=== PATIENT | female | born 1960 | race Caucasian/White ===

== ENCOUNTER 2021-01-07 11:51 | Outpatient (CLI) | payer MEDICAID ==
[~2021-01-07 11:51] MED LIST: BUSPAR PO; FURO40TA4 PO; GABA300C PO; NORT25CA5 PO; POTA8CAP20 PO; SUMA100T PO; VITAMIN D3 PO
[2021-01-07 14:28] LABS: PARTIAL THROMBOPLASTIN TIME 24 SECONDS (22-32)
== END 2021-01-07 23:59 | disposition home or self-care (01) ==
LOC: LAB 11:51
DX: Z13.220 Encounter for screening for lipoid disorders (principal); B19.20 Unspecified viral hepatitis C without hepatic coma; G47.00 Insomnia, unspecified; G47.30 Sleep apnea, unspecified; G25.0 Essential tremor; G62.0 Drug-induced polyneuropathy; I63.40 Cerebral infarction due to embolism of unspecified cerebral artery; Z12.11 Encounter for screening for malignant neoplasm of colon; Z59.9 Problem related to housing and economic circumstances, unspecified
CPT/HCPCS: 36415; 85610; 85730

== ENCOUNTER 2021-01-12 08:51 | Outpatient (CLI) | payer MEDICAID ==
[2021-01-12 11:50] LABS: BASOPHILS % (AUTO) 1.3 % (0-1); EOSINOPHILS # (AUTO) 0.1 X10'3 (0-0.9); EOSINOPHILS % (AUTO) 4.2 % (0-6); HEMATOCRIT 37.8 % (35.0-45.0); HEMOGLOBIN 12.5 g/dl (12.0-16.0); LYMPHOCYTES # (AUTO) 0.5 X10'3 (1.1-4.8); LYMPHOCYTES % (AUTO) 23.6 % (21-51); MEAN CORPUSCULAR HEMOGLOBIN 30.2 PG (27.0-31.0); MEAN CORPUSCULAR VOLUME 91.6 FL (78-98); MEAN PLATELET VOLUME 10.4 FL (7.4-10.4); MONOCYTES # (AUTO) 0.3 X10'3 (0-0.9); MONOCYTES % (AUTO) 13.1 % (2-12); NEUTROPHILS # (AUTO) 1.3 X10'3 (1.8-7.7); NEUTROPHILS % (AUTO) 57.8 % (42-75); PLATELET COUNT 57 X10'3 (140-440); RED BLOOD COUNT 4.13 X10'6 (4.20-5.60); RED CELL DISTRIBUTION WIDTH 17.8 % (11.5-14.5); WHITE BLOOD COUNT 2.2 X10'3 (4.5-11.0)
[2021-01-12 12:11] LABS: ALANINE AMINOTRANSFERASE 89 U/L (12-78); ALBUMIN 2.9 G/DL (3.4-5.0); ALBUMIN/GLOBULIN RATIO 0.9 (1.1-1.5); ALKALINE PHOSPHATASE 163 IU/L (46-116); ANION GAP 8 (8-16); ASPARTATE AMINO TRANSFERASE 177 U/L (10-37); BILIRUBIN,TOTAL 2.1 MG/DL (0.1-1.0); BLOOD UREA NITROGEN 11 MG/DL (7-18); BUN/CREATININE RATIO 18.3 (6.6-38.0); CHLORIDE 108 MMOL/L (99-107); CHOL/HDL RATIO 2.9 (0.00-4.99); CHOLESTEROL 120 MG/DL (0-200); GLUCOSE 102 MG/DL (70-104); HDL CHOLESTEROL 42 MG/DL (35-60); LDL CHOLESTEROL 61 MG/DL (50-100); POTASSIUM 3.7 MMOL/L (3.5-5.1); SODIUM 144 MMOL/L (135-145); TOTAL CARBON DIOXIDE 27.8 MMOL/L (24-32); TOTAL PROTEIN 6.2 G/DL (6.4-8.2); TRIGLYCERIDES 61 MG/DL (20-135); eGFR > 90 ML/MIN
[2021-01-12 15:13] LABS: HIV ANTIBODY 1&2 RAPID NON-REACTIVE (Neg)
[2021-01-13 12:53] LABS: HBSAG SCREEN Negative (Negative); HEP A AB, IGM Negative (Negative); HEPATITIS C ANTIBODY >11.0 s/co ratio (0.0-0.9)
== END 2021-01-12 23:59 | disposition home or self-care (01) ==
LOC: LAB 08:51
DX: Z12.11 Encounter for screening for malignant neoplasm of colon (principal); Z13.220 Encounter for screening for lipoid disorders; B19.20 Unspecified viral hepatitis C without hepatic coma; G47.11 Idiopathic hypersomnia with long sleep time; G47.30 Sleep apnea, unspecified; G25.0 Essential tremor; G62.0 Drug-induced polyneuropathy; I63.40 Cerebral infarction due to embolism of unspecified cerebral artery; Z59.9 Problem related to housing and economic circumstances, unspecified; Z87.898 Personal history of other specified conditions
CPT/HCPCS: 36415; 80053; 80061; 80074; 84443; 85025; 86703; 87522

== ENCOUNTER 2021-06-15 14:48 | Inpatient (IN) | payer MEDICAID ==
[~2021-06-15] VITALS: Ht 165.1 cm; Wt 109.1 kg
[2021-06-15 15:31] LABS: BASOPHILS # (AUTO) 0.1 X10'3 (0-0.2); EOSINOPHILS # (AUTO) 0.1 X10'3 (0-0.9); EOSINOPHILS % (AUTO) 2.1 % (0-6); HEMATOCRIT 36.3 % (35.0-45.0); HEMOGLOBIN 12.5 g/dl (12.0-16.0); LYMPHOCYTES # (AUTO) 0.3 X10'3 (1.1-4.8); LYMPHOCYTES % (AUTO) 6.3 % (21-51); MEAN CORPUSCULAR HEMOGLOBIN 34.1 PG (27.0-31.0); MEAN CORPUSCULAR HGB CONC 34.5 g/dL (33.0-36.5); MEAN PLATELET VOLUME 9.9 FL (7.4-10.4); MONOCYTES # (AUTO) 0.6 X10'3 (0-0.9); MONOCYTES % (AUTO) 11.7 % (2-12); NEUTROPHILS # (AUTO) 4.1 X10'3 (1.8-7.7); NEUTROPHILS % (AUTO) 77.9 % (42-75); PLATELET COUNT 76 X10'3 (140-440); RED BLOOD COUNT 3.66 X10'6 (4.20-5.60); RED CELL DISTRIBUTION WIDTH 16.1 % (11.5-14.5); WHITE BLOOD COUNT 5.3 X10'3 (4.5-11.0)
[2021-06-15 15:46] LABS: ALANINE AMINOTRANSFERASE 91 U/L (12-78); ALBUMIN 1.7 G/DL (3.4-5.0); ALKALINE PHOSPHATASE 202 IU/L (46-116); ASPARTATE AMINO TRANSFERASE 244 U/L (10-37); BILIRUBIN,TOTAL 8.3 MG/DL (0.1-1.0); BLOOD UREA NITROGEN 14 MG/DL (7-18); BUN/CREATININE RATIO 21.9 (6.6-38.0); CREATININE 0.64 MG/DL (0.40-0.90); GLUCOSE 118 MG/DL (70-104); TOTAL CARBON DIOXIDE 28.3 MMOL/L (24-32); eGFR > 90 ML/MIN
[2021-06-15 15:50] LABS: D-DIMER 8.78 MG/L FEU (0-0.50)
[2021-06-15 16:07] LABS: ALBUMIN/GLOBULIN RATIO 0.4 (1.1-1.5); TOTAL PROTEIN 6.2 G/DL (6.4-8.2)
[2021-06-15 16:08] LABS: ANION GAP 8 (8-16); CHLORIDE 95 MMOL/L (99-107); POTASSIUM 3.3 MMOL/L (3.5-5.1); SODIUM 131 MMOL/L (135-145)
--- NOTE | 2021-06-15 17:38 | NUR ---
unable to obtain any iv on the patient asked flaco if he can try ultrasound guided iv.
--- NOTE | 2021-06-15 19:01 | NUR ---
Patient resting on gurney, needs IV
--- NOTE | 2021-06-15 19:06 | NUR ---
Patient with Dr. Sadler
[2021-06-15] MEDS ORDERED: normal saline 1000ML IV soln IVB ONE (20:15)
[2021-06-15] MEDS ORDERED: furosemide 10 MG/1 ML 10ml inj IV ONE (20:20)
[2021-06-15] MEDS ORDERED: potassium Cl 10 mEq/100mL bag IV ONE (20:20)
[2021-06-15 20:45] LABS: CLARITY,URINE CLEAR (Clear); COLOR,URINE YELLOW (Yellow); GLUCOSE, URINE NEGATIVE (Neg); KETONES,URINE NEGATIVE (Neg); LEUKOCYTE ESTERASE ,URINE NEGATIVE (Neg); NITRITES, URINE NEGATIVE (Neg); OCCULT BLOOD,URINE NEGATIVE (Neg); PH,URINE 5.5 (4.8-8.0); PROTEIN,URINE NEGATIVE (Neg)
[2021-06-15 21:04] LABS: UA COLLECTION TYPE FOLEY CATH
[2021-06-15] MEDS ORDERED: diphenhydrAMINE 50 mg/ml inj IV PRN (21:15)
[2021-06-15] MEDS ORDERED: acetaminophen 650mg rectal suppository RC PRN (21:15)
[2021-06-15] MEDS ORDERED: morphine 2 MG/ML inj. syringe IV PRN (21:15)
[2021-06-15] MEDS ORDERED: diphenhydrAMINE 25mg capsule PO PRN (21:15)
[2021-06-15] MEDS ORDERED: acetaminophen 325mg tablet PO PRN ×2 (21:15)
[2021-06-15] MEDS ORDERED: magnesium hydroxide 30ml (MOM) UD suspension PO PRN (21:15)
[2021-06-15] MEDS ORDERED: magnesium Cl slow-release 64mg tablet PO PRN (21:15)
[2021-06-15] MEDS ORDERED: bisacodyl 10mg suppository rectal RC PRN (21:15)
[2021-06-15] MEDS ORDERED: magnesium 4gm in 100ml NS 100 ML IV PRN (21:15)
[2021-06-15] MEDS ORDERED: mag hydrox/Alum hydrox/simeth 30ml oral suspension PO PRN (21:15)
[2021-06-15] MEDS ORDERED: magnesium 2GM in 50ml NS 50 ML IV PRN (21:15)
[2021-06-15] MEDS ORDERED: ondansetron 4mg rapidly disintigrating tab PO PRN (21:15)
[2021-06-15] MEDS ORDERED: potassium Cl 20 mEq SR tablet PO PRN (21:15)
[2021-06-15] MEDS ORDERED: ondansetron/PF 4mg/2ml inj IV PRN (21:15)
[2021-06-15 21:45] LABS: HEMOGLOBIN A1C 4.4 % (4.5-6.2)
[2021-06-15 21:46] LABS: APTT 32 SECONDS (22-32)
[2021-06-15] MEDS ORDERED: DOXE50CA4 PO (21:56)
[2021-06-15] MEDS ORDERED: GABA-534 PO (21:56)
[2021-06-15] MEDS ORDERED: POTA-192 PO (21:56)
[2021-06-15] MEDS ORDERED: CLOP75TA34 PO (21:56)
[2021-06-15 22:25] LABS: CREATINE KINASE 104 U/L (26-192); LIPASE 90 U/L (73-393)
[2021-06-15 22:26] LABS: POTASSIUM 3.4 MMOL/L (3.5-5.1)
[2021-06-15 22:55] VITALS: BP 99/65
--- NOTE | 2021-06-15 23:00 | NUR ---
Received report from KARYN Clayton. Patient placed in 346A, awake and alert on room air, in no apparent distress. Call light and items of frequent use within reach. Will continue to monitor.
[2021-06-15] MEDS: potassium Cl 20 mEq SR tablet PO PRN (23:50)
[2021-06-15] MEDS: temazepam 15mg capsule PO PRN (23:50)
[2021-06-16] MEDS ORDERED: SUMAtriptan 25 MG tablet PO PRN (00:25)
--- NOTE | 2021-06-16 06:28 | NUR ---
Problems reprioritized. Patient report given, questions answered & plan of care reviewed with KARYN Messer.
[2021-06-16 07:00] VITALS: BP 116/71
[2021-06-16] MEDS: furosemide 40mg/4ml inj IV SCH ×2 (07:37→20:40)
[2021-06-16] MEDS: gabapentin 400mg capsule PO SCH ×2 (07:39→16:06)
[2021-06-16] MEDS: docusate sod 100mg capsule PO SCH ×2 (07:39→20:39)
[2021-06-16] MEDS: pantoprazole 40mg Tablet.DR PO SCH (07:39)
[2021-06-16] MEDS: clopidogrel 75mg tablet PO SCH (07:39)
[2021-06-16] MEDS: nystatin 15 GM powder TP SCH ×3 (07:43→20:40)
[2021-06-16] MEDS: K and/or MAG REPLACEMENT MC SCH ×2 (08:00→20:00)
[2021-06-16 09:19] LABS: ALANINE AMINOTRANSFERASE 85 U/L (12-78); ALBUMIN 1.6 G/DL (3.4-5.0); ALKALINE PHOSPHATASE 187 IU/L (46-116); ANION GAP 7 (8-16); BILIRUBIN,TOTAL 8.6 MG/DL (0.1-1.0); BLOOD UREA NITROGEN 14 MG/DL (7-18); BUN/CREATININE RATIO 21.2 (6.6-38.0); CALCIUM 7.9 MG/DL (8.5-10.1); CHLORIDE 98 MMOL/L (99-107); CREATININE 0.66 MG/DL (0.40-0.90); GLUCOSE 103 MG/DL (70-104); MAGNESIUM 1.8 MG/DL (1.5-2.4); SODIUM 132 MMOL/L (135-145); TOTAL CARBON DIOXIDE 27.5 MMOL/L (24-32); eGFR > 90 ML/MIN
[2021-06-16 09:21] LABS: ALBUMIN/GLOBULIN RATIO 0.4 (1.1-1.5); ASPARTATE AMINO TRANSFERASE 247 U/L (10-37); POTASSIUM 3.2 MMOL/L (3.5-5.1); TOTAL PROTEIN 5.9 G/DL (6.4-8.2)
[2021-06-16] MEDS ORDERED: pneumococcal 23-VAL P-sac vacc 25 mcg/0.5ml vial IMVAC ONE (10:00)
[2021-06-16] MEDS ORDERED: FLU VACC QS2021-22(6MOS UP)/PF 60 MCG/0.5 ML SYRINGE IM ONE (10:00)
[2021-06-16] MEDS ORDERED: iohexol 350MG/ML 100ml bottle IV ONE (10:05)
[2021-06-16 11:00] VITALS: BP 106/61
[2021-06-16 11:55] LABS: BASOPHILS % (AUTO) 0.9 % (0-1); EOSINOPHILS # (AUTO) 0.1 X10'3 (0-0.9); EOSINOPHILS % (AUTO) 1.9 % (0-6); HEMATOCRIT 31.8 % (35.0-45.0); LYMPHOCYTES # (AUTO) 0.5 X10'3 (1.1-4.8); LYMPHOCYTES % (AUTO) 11.3 % (21-51); MEAN CORPUSCULAR HEMOGLOBIN 34.7 PG (27.0-31.0); MEAN CORPUSCULAR HGB CONC 34.5 g/dL (33.0-36.5); MEAN CORPUSCULAR VOLUME 100.4 FL (78-98); MEAN PLATELET VOLUME 9.3 FL (7.4-10.4); MONOCYTES # (AUTO) 0.7 X10'3 (0-0.9); MONOCYTES % (AUTO) 15.4 % (2-12); NEUTROPHILS # (AUTO) 3.4 X10'3 (1.8-7.7); NEUTROPHILS % (AUTO) 70.5 % (42-75); PLATELET COUNT 79 X10'3 (140-440); RED BLOOD COUNT 3.17 X10'6 (4.20-5.60); RED CELL DISTRIBUTION WIDTH 16.1 % (11.5-14.5); WHITE BLOOD COUNT 4.8 X10'3 (4.5-11.0)
[2021-06-16 12:22] LABS: ANISOCYTOSIS 1+; PLATELET ESTIMATE DECREASED; TOTAL CELLS COUNTED 100
[2021-06-16] MEDS ORDERED: CefTRIAXone/D5W-Rocephin 1gm 50 ML IV ONE (12:40)
[2021-06-16] MEDS ORDERED: heparin 10,000 units/1 ML INJ IV ONE (13:00)
[2021-06-16] MEDS ORDERED: heparin 10,000 units/1 ML INJ IV PRN (13:00)
[2021-06-16] MEDS: potassium CL 10mEq/100ml bag 100 ML IV PRN ×2 (16:07→17:28)
[2021-06-16] MEDS: heparin 25,000 UNIT/250ml bag 250 ML IV SCH (17:27)
[2021-06-16 18:00] VITALS: BP 119/57
--- NOTE | 2021-06-16 18:37 | NUR ---
Problems reprioritized. Patient report given, questions answered & plan of care reviewed with KARYN Brownlee and alannah Gaytan RN.
[2021-06-16] MEDS: normal saline 1000ml 1,000 ML IV SCH (18:40)
--- NOTE | 2021-06-16 19:11 | NUR ---
I have received report from KARYN Messer and had the opportunity to ask questions and assume patient care.
[2021-06-16] MEDS: doxepin 25mg capsule PO SCH (20:40)
[2021-06-16] MEDS: potassium Cl 20 mEq SR tablet PO PRN (21:20)
[2021-06-16 23:59] VITALS: BP 124/53
[2021-06-17] MEDS: gabapentin 400mg capsule PO SCH ×4 (00:12→23:34)
[2021-06-17] MEDS: heparin 25,000 UNIT/250ml bag 250 ML IV SCH (02:10)
--- NOTE | 2021-06-17 03:15 | NUR ---
spoke with Dr. Putnam regarding heparin drip and the blood draws are not coagulatig
--- NOTE | 2021-06-17 03:17 | NUR ---
spoke with Dr. Putnam regarding heparin drip and the blood draws are not coagulating. Blood has been drawn x3 and there has been no analysis. ordered to hold the heparin and redraw at 0700, according to protocol.
--- NOTE | 2021-06-17 06:14 | NUR ---
I agree with KARYN Gaytansurgical dressing maker, assessments, and report given to KARYN Yousif
--- NOTE | 2021-06-17 06:34 | NUR ---
Problems reprioritized. Patient report given, questions answered & plan of care reviewed with KARYN Berger.
[2021-06-17 07:56] LABS: HEMOGLOBIN 10.9 g/dl (12.0-16.0); MEAN CORPUSCULAR VOLUME 100.7 FL (78-98)
[2021-06-17 07:58] LABS: BASOPHILS % (AUTO) 0.2 % (0-1); EOSINOPHILS # (AUTO) 0.1 X10'3 (0-0.9); EOSINOPHILS % (AUTO) 3.2 % (0-6); HEMATOCRIT 31.9 % (35.0-45.0); LYMPHOCYTES # (AUTO) 0.8 X10'3 (1.1-4.8); LYMPHOCYTES % (AUTO) 18.2 % (21-51); MEAN CORPUSCULAR HEMOGLOBIN 34.3 PG (27.0-31.0); MEAN CORPUSCULAR HGB CONC 34.1 g/dL (33.0-36.5); MEAN PLATELET VOLUME 9.3 FL (7.4-10.4); MONOCYTES # (AUTO) 0.8 X10'3 (0-0.9); MONOCYTES % (AUTO) 16.6 % (2-12); NEUTROPHILS # (AUTO) 2.8 X10'3 (1.8-7.7); NEUTROPHILS % (AUTO) 61.8 % (42-75); PLATELET COUNT 79 X10'3 (140-440); RED BLOOD COUNT 3.17 X10'6 (4.20-5.60); RED CELL DISTRIBUTION WIDTH 16.2 % (11.5-14.5); WHITE BLOOD COUNT 4.6 X10'3 (4.5-11.0)
[2021-06-17 08:00] VITALS: BP 108/51
[2021-06-17] MEDS: clopidogrel 75mg tablet PO SCH ×2 (08:00→09:05)
[2021-06-17] MEDS: K and/or MAG REPLACEMENT MC SCH ×2 (08:00→22:20)
[2021-06-17 08:24] LABS: ALANINE AMINOTRANSFERASE 72 U/L (12-78); ALKALINE PHOSPHATASE 172 IU/L (46-116); ANION GAP 6 (8-16); ASPARTATE AMINO TRANSFERASE 185 U/L (10-37); BILIRUBIN,TOTAL 6.2 MG/DL (0.1-1.0); BLOOD UREA NITROGEN 16 MG/DL (7-18); BUN/CREATININE RATIO 21.6 (6.6-38.0); CALCIUM 7.6 MG/DL (8.5-10.1); CHLORIDE 98 MMOL/L (99-107); CREATININE 0.74 MG/DL (0.40-0.90); GLUCOSE 110 MG/DL (70-104); SODIUM 131 MMOL/L (135-145); TOTAL CARBON DIOXIDE 27.3 MMOL/L (24-32); eGFR 80 ML/MIN
[2021-06-17 08:35] LABS: POTASSIUM 3.2 MMOL/L (3.5-5.1); TOTAL PROTEIN 5.1 G/DL (6.4-8.2)
[2021-06-17] MEDS: CefTRIAXone/D5W-Rocephin 1gm 50 ML IV SCH (09:06)
[2021-06-17] MEDS: furosemide 40mg/4ml inj IV SCH ×2 (09:06→22:32)
[2021-06-17] MEDS: docusate sod 100mg capsule PO SCH ×4 (09:06→22:33)
[2021-06-17] MEDS: nystatin 15 GM powder TP SCH ×3 (09:07→22:33)
[2021-06-17] MEDS: pantoprazole 40mg Tablet.DR PO SCH (09:10)
[2021-06-17 09:14] LABS: ALBUMIN 1.5 G/DL (3.4-5.0)
[2021-06-17 09:15] LABS: ALBUMIN/GLOBULIN RATIO 0.4 (1.1-1.5)
--- NOTE | 2021-06-17 10:19 | NUR ---
message to dr corrales "PAGER ID: [phone] MESSAGE: please call re: josemanuel hardy ~Celine nunes [phone]"
--- NOTE | 2021-06-17 10:38 | NUR ---
dr corrales returned page to be made aware of issues with blood in urine and bruising on arms. dr gave TO to hold heparin IV and plavix
[2021-06-17 11:00] VITALS: BP 105/70
--- NOTE | 2021-06-17 12:09 | NUR ---
message to dr banks "PAGER ID: [phone] MESSAGE: US-portal vein thrombus suspected [id number] hayley Knight rn [phone]"
[2021-06-17] MEDS: potassium Cl 20 mEq SR tablet PO PRN ×3 (14:15→22:00)
--- NOTE | 2021-06-17 18:30 | NUR ---
Patient in room [facility]. I have received report from KARYN Berger and had the opportunity to ask questions and assume patient care. Addendum: 06/17/21 at 1933 by Pierre Murray RN Amended: Links added.
[2021-06-17 19:00] VITALS: BP 111/77
--- NOTE | 2021-06-17 19:00 | NUR ---
UNABLE TO WEIGH PT, WILL TRANSFER TO WEIGH BED IF POSSIBLE. PT CANNOT MOVE SELF TO BED PT STATES. PT CANNOT STAND OR AMBULATE. Addendum: 06/18/21 at 0244 by Pierre Murray RN Amended: Links added.
[2021-06-17] MEDS: albumin (human) 25% 100 ML IV solution IV SCH (19:43)
[2021-06-17] MEDS: doxepin 25mg capsule PO SCH (19:54)
[2021-06-17] MEDS: normal saline 1000ml 1,000 ML IV SCH (22:33)
[2021-06-17] MEDS: temazepam 15mg capsule PO PRN (23:37)
[2021-06-18 00:30] VITALS: BP 133/59
--- NOTE | 2021-06-18 05:25 | NUR ---
labs drawn Addendum: 06/18/21 at 0525 by Pierre Murray RN Amended: Links added.
--- NOTE | 2021-06-18 06:24 | NUR ---
Problems reprioritized. Patient report given, questions answered & plan of care reviewed with KARYN Berger. Addendum: 06/18/21 at 0625 by Pierre Murray RN Amended: Links added.
[2021-06-18 06:38] LABS: BASOPHILS % (AUTO) 0.9 % (0-1); EOSINOPHILS # (AUTO) 0.1 X10'3 (0-0.9); EOSINOPHILS % (AUTO) 3.4 % (0-6); HEMATOCRIT 29.5 % (35.0-45.0); HEMOGLOBIN 10.3 g/dl (12.0-16.0); LYMPHOCYTES # (AUTO) 0.6 X10'3 (1.1-4.8); LYMPHOCYTES % (AUTO) 15.4 % (21-51); MEAN CORPUSCULAR HEMOGLOBIN 35.1 PG (27.0-31.0); MEAN CORPUSCULAR HGB CONC 34.9 g/dL (33.0-36.5); MEAN CORPUSCULAR VOLUME 100.5 FL (78-98); MEAN PLATELET VOLUME 9.1 FL (7.4-10.4); MONOCYTES # (AUTO) 0.6 X10'3 (0-0.9); NEUTROPHILS # (AUTO) 2.4 X10'3 (1.8-7.7); NEUTROPHILS % (AUTO) 64.3 % (42-75); PLATELET COUNT 78 X10'3 (140-440); RED BLOOD COUNT 2.94 X10'6 (4.20-5.60); RED CELL DISTRIBUTION WIDTH 16.4 % (11.5-14.5); WHITE BLOOD COUNT 3.7 X10'3 (4.5-11.0)
[2021-06-18 06:41] LABS: ALANINE AMINOTRANSFERASE 57 U/L (12-78); ALBUMIN 2.1 G/DL (3.4-5.0); ALKALINE PHOSPHATASE 161 IU/L (46-116); ANION GAP 3 (8-16); ASPARTATE AMINO TRANSFERASE 148 U/L (10-37); BILIRUBIN,TOTAL 6.2 MG/DL (0.1-1.0); BLOOD UREA NITROGEN 17 MG/DL (7-18); BUN/CREATININE RATIO 27.4 (6.6-38.0); CALCIUM 7.9 MG/DL (8.5-10.1); CHLORIDE 98 MMOL/L (99-107); CREATININE 0.62 MG/DL (0.40-0.90); GLUCOSE 101 MG/DL (70-104); MAGNESIUM 1.9 MG/DL (1.5-2.4); SODIUM 130 MMOL/L (135-145); TOTAL CARBON DIOXIDE 28.8 MMOL/L (24-32); eGFR > 90 ML/MIN
[2021-06-18 06:43] LABS: ALBUMIN/GLOBULIN RATIO 0.7 (1.1-1.5); POTASSIUM 3.1 MMOL/L (3.5-5.1); TOTAL PROTEIN 5.3 G/DL (6.4-8.2)
[2021-06-18] MEDS: clopidogrel 75mg tablet PO SCH (06:53)
[2021-06-18] MEDS: gabapentin 400mg capsule PO SCH ×3 (07:50→23:05)
[2021-06-18] MEDS: potassium Cl 20 mEq SR tablet PO PRN (07:50)
[2021-06-18] MEDS: pantoprazole 40mg Tablet.DR PO SCH (07:50)
[2021-06-18] MEDS: CefTRIAXone/D5W-Rocephin 1gm 50 ML IV SCH (07:50)
[2021-06-18] MEDS: furosemide 40mg/4ml inj IV SCH ×3 (07:51→21:33)
[2021-06-18 08:00] VITALS: BP 110/85
[2021-06-18] MEDS: nystatin 15 GM powder TP SCH ×3 (08:00→21:33)
[2021-06-18] MEDS: K and/or MAG REPLACEMENT MC SCH ×2 (08:00→20:00)
--- NOTE | 2021-06-18 08:42 | NUR ---
PAGER ID: [phone] MESSAGE: Poonam-Surg [phone] Re: [place] BarrientosB Critical Portal Vein US, shows Portal vein thrombus acute, with Collateralized venous flow in the distal main portal vein and left branch Addendum: 06/18/21 at 0857 by Poonam Carvalho RN Dr Sigala called back will look into this patient because this is her 1st day with the patient. Addendum: 06/18/21 at 0902 by Poonam Carvalho RN Dr Sigala called back and said she spoke to the patient specialist and they will continue patient on anticoagulant therapy and out patient follow up for incidental mass. Dr Sigala will investigate to make sure patient is on anticoagulate therapy
--- NOTE | 2021-06-18 09:14 | NUR ---
PAGER ID: [phone] MESSAGE: Celine SURG 1817 Re: [place] please call re: Patient going to procedure today for Angio
[2021-06-18] MEDS ORDERED: heparin 10,000 units/1 ML INJ IV PRN (09:15)
[2021-06-18] MEDS: albumin (human) 25% 100 ML IV solution IV SCH (09:48)
[2021-06-18 12:00] VITALS: BP 108/62
[2021-06-18] MEDS: heparin 25,000 UNIT/250ml bag 250 ML IV SCH ×3 (16:28→22:25)
[2021-06-18 18:00] VITALS: BP_SYST 114; BP_SYST 96; BP_DIAS 61
--- NOTE | 2021-06-18 18:55 | NUR ---
Patient in room [facility]. I have received report from KARYN Berger and had the opportunity to ask questions and assume patient care.
--- NOTE | 2021-06-18 18:59 | NUR ---
Patient in room [facility]. I have received report from KARYN Berger and had the opportunity to ask questions and assume patient care.
[2021-06-18] MEDS: doxepin 25mg capsule PO SCH (21:33)
--- NOTE | 2021-06-18 21:35 | NUR ---
I have received report from KARYN Berger error in above charting , under 1859
[2021-06-18] MEDS ORDERED: potassium Cl 20 mEq SR tablet PO PRN (23:05)
[2021-06-18] MEDS ORDERED: potassium Cl 40MEQ/1/2NS 520ml 520 ML IV PRN ×2 (23:05)
[2021-06-19 00:26] VITALS: BP 93/52
[2021-06-19 04:58] LABS: EOSINOPHILS # (AUTO) 0.1 X10'3 (0-0.9); HEMOGLOBIN 9.9 g/dl (12.0-16.0); MEAN PLATELET VOLUME 9.6 FL (7.4-10.4); MONOCYTES # (AUTO) 0.5 X10'3 (0-0.9); NEUTROPHILS # (AUTO) 1.9 X10'3 (1.8-7.7)
[2021-06-19 05:00] LABS: BASOPHILS % (AUTO) 0.7 % (0-1); HEMATOCRIT 29.2 % (35.0-45.0); LYMPHOCYTES # (AUTO) 0.6 X10'3 (1.1-4.8); LYMPHOCYTES % (AUTO) 17.9 % (21-51); MEAN CORPUSCULAR HEMOGLOBIN 34.2 PG (27.0-31.0); MEAN CORPUSCULAR HGB CONC 33.9 g/dL (33.0-36.5); MONOCYTES % (AUTO) 15.9 % (2-12); NEUTROPHILS % (AUTO) 61.5 % (42-75); PLATELET COUNT 58 X10'3 (140-440); RED BLOOD COUNT 2.89 X10'6 (4.20-5.60); RED CELL DISTRIBUTION WIDTH 15.9 % (11.5-14.5); WHITE BLOOD COUNT 3.2 X10'3 (4.5-11.0)
[2021-06-19 05:05] LABS: ALANINE AMINOTRANSFERASE 56 U/L (12-78); ALBUMIN 2.3 G/DL (3.4-5.0); ALKALINE PHOSPHATASE 132 IU/L (46-116); ANION GAP 6 (8-16); ASPARTATE AMINO TRANSFERASE 150 U/L (10-37); BILIRUBIN,TOTAL 6.8 MG/DL (0.1-1.0); BLOOD UREA NITROGEN 16 MG/DL (7-18); BUN/CREATININE RATIO 22.9 (6.6-38.0); CALCIUM 7.9 MG/DL (8.5-10.1); CHLORIDE 99 MMOL/L (99-107); GLUCOSE 100 MG/DL (70-104); POTASSIUM 3.4 MMOL/L (3.5-5.1); SODIUM 135 MMOL/L (135-145); TOTAL CARBON DIOXIDE 30.2 MMOL/L (24-32); eGFR 85 ML/MIN
[2021-06-19 05:10] LABS: ALBUMIN/GLOBULIN RATIO 0.8 (1.1-1.5); TOTAL PROTEIN 5.3 G/DL (6.4-8.2)
--- NOTE | 2021-06-19 06:02 | NUR ---
Heparin drip was resumed after 2hr hold, due to last PTT not registering on the labs machine. Crate Opener suggested that it was probable that it was high. Dr Putnam wanted the drip to be held per protocol, but before resuming heparin drip, draw DVT PTT. PTT came back at 46, per protocal we decreased rate by 3 units, from 1900 down to 1600 units. Protocol for greater than 105 was used.
--- NOTE | 2021-06-19 06:22 | NUR ---
Problems reprioritized. Patient report given, questions answered & plan of care reviewed with KARYN Berger.
--- NOTE | 2021-06-19 06:34 | NUR ---
I agree with KARYN Gaytandocumentation spec, assessments, and report given to KARYN Berger
[2021-06-19] MEDS: K and/or MAG REPLACEMENT MC SCH ×4 (07:08→19:10)
[2021-06-19 08:00] VITALS: BP 105/80
[2021-06-19] MEDS: pantoprazole 40mg Tablet.DR PO SCH (08:33)
[2021-06-19] MEDS: gabapentin 400mg capsule PO SCH ×3 (08:33→23:55)
[2021-06-19] MEDS: docusate sod 100mg capsule PO SCH ×2 (08:33→19:02)
[2021-06-19] MEDS: CefTRIAXone/D5W-Rocephin 1gm 50 ML IV SCH (08:33)
[2021-06-19] MEDS: furosemide 40mg/4ml inj IV SCH ×3 (08:33→20:15)
[2021-06-19] MEDS: nystatin 15 GM powder TP SCH ×3 (08:34→20:17)
[2021-06-19] MEDS: potassium Cl 20 mEq SR tablet PO PRN ×2 (08:34→19:03)
[2021-06-19] MEDS: albumin (human) 25% 100 ML IV solution IV SCH (09:36)
[2021-06-19 11:00] VITALS: BP 115/47
--- NOTE | 2021-06-19 11:47 | NUR ---
message to dr henry "PAGER ID: [phone] MESSAGE: are you planning to switch pt to lovenox for [facility] per Dr Rios (IR) recommendation? [id number] hayley~ Celine rn [phone] "
[2021-06-19] MEDS: heparin 25,000 UNIT/250ml bag 250 ML IV SCH (13:21)
--- NOTE | 2021-06-19 15:26 | NUR ---
Initial: Per H&P pt with h/o liver cirrhosis secondary to hepatitis C with EtOH hx, admit for worsening anasarca and SOB. Liver ultrasound showed hepatoma and possible portal vein thrombus per MD note. Recommend routine Thiamine, Folic acid, and MVI given EtOH hx with elevated MCV, paged. Pt currently on a 2 g Na restricted diet and overall eating well with average 75% PO intake of meals meeting estimated nutrient needs for IBW + 10% as current documented wt isn't scaled. LBM 06/18. Will continue to follow and make recommendations as appropriate. Recommendations: 1) Advance to low fat diet as medically indicated; hyponatremia on admit, now WNL 2) Monitor need for additional protein 3) Routine Thiamine, Folic acid, and MVI with MD approval in view of EtOH hx with elevated MCV, paged 4) Routine bowel care 5) Scaled weight this admit; weekly scaled weights thereafter Addendum: 06/19/21 at [address]án[address] Amended: Links added.
[2021-06-19] MEDS ORDERED: FONDAPARINUX 10 MG/0.8 ML SYRINGE SQ SCH ×2 (16:04→18:33)
[2021-06-19 17:31] VITALS: BP 115/47
[2021-06-19] MEDS: FONDAPARINUX 10 MG/0.8 ML SYRINGE SQ SCH (19:04)
[2021-06-19 19:10] VITALS: BP 116/74
[2021-06-19] MEDS: doxepin 25mg capsule PO SCH (20:15)
[2021-06-20] VITALS: BP 110/67
[2021-06-20] MEDS: potassium Cl 20 mEq SR tablet PO PRN ×4 (00:11→22:41)
[2021-06-20] MEDS: salt irrigation nasal spray 45 ML SPRAY NS PRN (03:07)
[2021-06-20 07:00] VITALS: BP 100/63
[2021-06-20] MEDS: docusate sod 100mg capsule PO SCH ×2 (07:41→20:51)
[2021-06-20] MEDS: pantoprazole 40mg Tablet.DR PO SCH (07:41)
[2021-06-20] MEDS: gabapentin 400mg capsule PO SCH ×3 (07:41→23:19)
[2021-06-20] MEDS: furosemide 40mg/4ml inj IV SCH ×3 (07:41→20:50)
[2021-06-20] MEDS: CefTRIAXone/D5W-Rocephin 1gm 50 ML IV SCH (07:42)
[2021-06-20] MEDS: nystatin 15 GM powder TP SCH ×3 (07:42→20:51)
[2021-06-20] MEDS: albumin (human) 25% 100 ML IV solution IV SCH (07:44)
[2021-06-20] MEDS: FONDAPARINUX 10 MG/0.8 ML SYRINGE SQ SCH (07:52)
[2021-06-20] MEDS: K and/or MAG REPLACEMENT MC SCH ×4 (08:00→20:50)
[2021-06-20] MEDS ORDERED: FONDAPARINUX 10 MG/0.8 ML SYRINGE SQ SCH (08:00)
[2021-06-20 09:58] LABS: EOSINOPHILS # (AUTO) 0.1 X10'3 (0-0.9); MEAN CORPUSCULAR HGB CONC 34.4 g/dL (33.0-36.5); PLATELET COUNT 53 X10'3 (140-440)
[2021-06-20 10:00] LABS: BASOPHILS % (AUTO) 0.9 % (0-1); EOSINOPHILS % (AUTO) 2.7 % (0-6); HEMATOCRIT 26.9 % (35.0-45.0); HEMOGLOBIN 9.3 g/dl (12.0-16.0); LYMPHOCYTES # (AUTO) 0.4 X10'3 (1.1-4.8); LYMPHOCYTES % (AUTO) 14.7 % (21-51); MEAN CORPUSCULAR HEMOGLOBIN 34.8 PG (27.0-31.0); MEAN CORPUSCULAR VOLUME 101.1 FL (78-98); MEAN PLATELET VOLUME 9.4 FL (7.4-10.4); MONOCYTES # (AUTO) 0.4 X10'3 (0-0.9); MONOCYTES % (AUTO) 15.6 % (2-12); NEUTROPHILS # (AUTO) 1.6 X10'3 (1.8-7.7); NEUTROPHILS % (AUTO) 66.1 % (42-75); RED BLOOD COUNT 2.66 X10'6 (4.20-5.60); WHITE BLOOD COUNT 2.4 X10'3 (4.5-11.0)
[2021-06-20 10:07] LABS: ALANINE AMINOTRANSFERASE 52 U/L (12-78); ALBUMIN 3.3 G/DL (3.4-5.0); ALKALINE PHOSPHATASE 117 IU/L (46-116); ANION GAP 9 (8-16); ASPARTATE AMINO TRANSFERASE 133 U/L (10-37); BILIRUBIN,TOTAL 6.9 MG/DL (0.1-1.0); BLOOD UREA NITROGEN 15 MG/DL (7-18); BUN/CREATININE RATIO 20.8 (6.6-38.0); CALCIUM 8.1 MG/DL (8.5-10.1); CHLORIDE 98 MMOL/L (99-107); CREATININE 0.72 MG/DL (0.40-0.90); GLUCOSE 116 MG/DL (70-104); POTASSIUM 3.3 MMOL/L (3.5-5.1); SODIUM 136 MMOL/L (135-145); TOTAL CARBON DIOXIDE 28.8 MMOL/L (24-32); eGFR 82 ML/MIN
[2021-06-20 10:09] LABS: ALBUMIN/GLOBULIN RATIO 1.3 (1.1-1.5); TOTAL PROTEIN 5.9 G/DL (6.4-8.2)
[2021-06-20 11:00] VITALS: BP 117/69
[2021-06-20 11:03] LABS: TOTAL CELLS COUNTED 100
[2021-06-20 11:04] LABS: LARGE PLATELETS FEW; PLATELET ESTIMATE DECREASED
[2021-06-20] MEDS: rivaroxaban 20mg tablet PO SCH (17:54)
[2021-06-20 19:00] VITALS: BP 116/72
[2021-06-20 20:45] VITALS: BP 105/66
[2021-06-20] MEDS: normal saline 1000ml 1,000 ML IV SCH (20:48)
[2021-06-20] MEDS: doxepin 25mg capsule PO SCH (20:51)
[2021-06-21] VITALS: BP 119/80
[2021-06-21 08:00] VITALS: BP 100/69
[2021-06-21] MEDS: K and/or MAG REPLACEMENT MC SCH ×4 (08:00→20:00)
[2021-06-21] MEDS: furosemide 40mg/4ml inj IV SCH ×3 (08:46→20:38)
[2021-06-21] MEDS: gabapentin 400mg capsule PO SCH ×3 (08:47→23:32)
[2021-06-21] MEDS: CefTRIAXone/D5W-Rocephin 1gm 50 ML IV SCH (08:47)
[2021-06-21] MEDS: pantoprazole 40mg Tablet.DR PO SCH (08:47)
[2021-06-21] MEDS: docusate sod 100mg capsule PO SCH ×2 (08:47→20:38)
[2021-06-21] MEDS: nystatin 15 GM powder TP SCH ×3 (08:47→20:39)
[2021-06-21 11:00] VITALS: BP 107/61
[2021-06-21 12:32] LABS: EOSINOPHILS # (AUTO) 0.1 X10'3 (0-0.9); HEMATOCRIT 29.1 % (35.0-45.0); HEMOGLOBIN 9.8 g/dl (12.0-16.0); LYMPHOCYTES # (AUTO) 0.4 X10'3 (1.1-4.8); LYMPHOCYTES % (AUTO) 14.5 % (21-51); MEAN CORPUSCULAR HEMOGLOBIN 34.4 PG (27.0-31.0); MEAN CORPUSCULAR HGB CONC 33.8 g/dL (33.0-36.5); MEAN CORPUSCULAR VOLUME 101.7 FL (78-98); MEAN PLATELET VOLUME 9.8 FL (7.4-10.4); MONOCYTES # (AUTO) 0.4 X10'3 (0-0.9); MONOCYTES % (AUTO) 15.4 % (2-12); NEUTROPHILS # (AUTO) 1.8 X10'3 (1.8-7.7); NEUTROPHILS % (AUTO) 66.1 % (42-75); PLATELET COUNT 58 X10'3 (140-440); RED BLOOD COUNT 2.86 X10'6 (4.20-5.60); RED CELL DISTRIBUTION WIDTH 16.1 % (11.5-14.5); WHITE BLOOD COUNT 2.7 X10'3 (4.5-11.0)
[2021-06-21 12:46] LABS: ALANINE AMINOTRANSFERASE 58 U/L (12-78); ALBUMIN 2.9 G/DL (3.4-5.0); ALBUMIN/GLOBULIN RATIO 1.1 (1.1-1.5); ALKALINE PHOSPHATASE 118 IU/L (46-116); ANION GAP 4 (8-16); ASPARTATE AMINO TRANSFERASE 154 U/L (10-37); BILIRUBIN,TOTAL 6.6 MG/DL (0.1-1.0); BLOOD UREA NITROGEN 14 MG/DL (7-18); BUN/CREATININE RATIO 20.9 (6.6-38.0); CALCIUM 7.7 MG/DL (8.5-10.1); CHLORIDE 100 MMOL/L (99-107); CREATININE 0.67 MG/DL (0.40-0.90); GLUCOSE 126 MG/DL (70-104); POTASSIUM 3.5 MMOL/L (3.5-5.1); SODIUM 134 MMOL/L (135-145); TOTAL CARBON DIOXIDE 30.1 MMOL/L (24-32); TOTAL PROTEIN 5.6 G/DL (6.4-8.2); eGFR 89 ML/MIN
[2021-06-21 13:31] LABS: TOTAL CELLS COUNTED 100
[2021-06-21 13:32] LABS: ANISOCYTOSIS 1+; ELLIPTOCYTES FEW; PLATELET ESTIMATE DECREASED; TEAR DROP CELLS 2+
[2021-06-21] MEDS: rivaroxaban 20mg tablet PO SCH (16:33)
[2021-06-21 18:00] VITALS: BP 108/67
--- NOTE | 2021-06-21 18:09 | NUR ---
Patient in room [facility]. I have received report from KARYN Berger and had the opportunity to ask questions and assume patient care.
--- NOTE | 2021-06-21 18:57 | NUR ---
Patient in room [facility]. I have received report from KARYN Berger and had the opportunity to ask questions and assume patient care.
[2021-06-21 20:00] VITALS: BP 108/67
[2021-06-21] MEDS: doxepin 25mg capsule PO SCH (20:38)
[2021-06-22] VITALS: BP 102/64
--- NOTE | 2021-06-22 06:18 | NUR ---
I agree with Lucila display associate, assessments, and report given to KARYN Joseph
--- NOTE | 2021-06-22 06:43 | NUR ---
Problems reprioritized. Patient report given, questions answered & plan of care reviewed with KARYN Joseph.
[2021-06-22 07:00] VITALS: BP 99/72
[2021-06-22 07:07] LABS: POTASSIUM 2.8 MMOL/L (3.5-5.1)
--- NOTE | 2021-06-22 07:09 | NUR ---
PAGER ID: [phone] MESSAGE: [id number] Alicia Golden: Critical potassium 2.8. no replacement protocol ordered. thanks! zay [phone]
[2021-06-22] MEDS ORDERED: magnesium 4gm in 100ml NS 100 ML IV PRN (07:25)
[2021-06-22] MEDS ORDERED: potassium CL 10mEq/100ml bag 100 ML IV PRN (07:25)
[2021-06-22] MEDS ORDERED: magnesium 2GM in 50ml NS 50 ML IV PRN (07:25)
[2021-06-22] MEDS ORDERED: magnesium Cl slow-release 64mg tablet PO PRN (07:25)
[2021-06-22] MEDS: K and/or MAG REPLACEMENT MC SCH ×4 (08:00→20:00)
[2021-06-22] MEDS: pantoprazole 40mg Tablet.DR PO SCH (08:27)
[2021-06-22] MEDS: docusate sod 100mg capsule PO SCH ×2 (08:27→19:11)
[2021-06-22] MEDS: potassium Cl 20 mEq SR tablet PO PRN ×4 (08:27→19:12)
[2021-06-22] MEDS: gabapentin 400mg capsule PO SCH ×3 (08:27→23:44)
[2021-06-22] MEDS: CefTRIAXone/D5W-Rocephin 1gm 50 ML IV SCH (08:28)
[2021-06-22] MEDS: nystatin 15 GM powder TP SCH ×3 (08:28→21:04)
[2021-06-22 08:30] VITALS: BP 130/74
[2021-06-22] MEDS: furosemide 40mg/4ml inj IV SCH ×3 (08:34→21:03)
[2021-06-22] MEDS: salt irrigation nasal spray 45 ML SPRAY NS PRN (08:43)
[2021-06-22 11:55] VITALS: BP 110/64
--- NOTE | 2021-06-22 13:56 | NUR ---
PRESSURE ULCER EDUCATION: DEFINITION: A pressure ulcer is an area of skin that breaks down when you stay in one position too long. The constant pressure against the skin reduces the blood flow to that area and the affected tissue dies. CAUSES: "Being bedridden or in a wheelchair "Fragile skin "Having a chronic condition, such as diabetes or vascular disease "Inability to move certain parts of your body without assistance "Older age "Incontinence of urine or stool SYMPTOMS: "A reddened area that DOES NOT turn white when pressed on - this can be the beginning of a pressure ulcer "A blister, deep sore or a crater - these can be advanced pressure ulcers FIRST AID: "Relieve the pressure on this area "Keep the area clean and dry "Call your primary doctor if you see any of the above symptoms "DO NOT massage the area "DO NOT use a donut shaped or ring shaped pillow- these actually interfere with the blood flow and cause complications PREVENTION: "Check for pressure ulcers everyday "Change position at least every two hours to relieve pressure "Use items that help relieve pressure- pillows, sheepskin, foam padding, and powders. "Keep skin clean and dry "Eat healthy well balanced meals "Exercise daily IF YOU SEE ANY OF THESE SYMPTOMS WHILE IN THE HOSPITAL - TELL YOUR NURSE IMMEDIATELY. IF YOU SEE ANY OF THESE SYMPTOMS WHILE AT HOME OR HAVE ANY QUESTIONS OR CONCERNS ABOUT PRESSURE ULCERS - CALL YOUR PRIMARY DOCTOR IMMEDIATELY. Addendum: 06/22/21 at 1356 by Cori Zhong RN Amended: Links added.
--- NOTE | 2021-06-22 15:11 | NUR ---
PAGER ID: [phone] MESSAGE: [phone] Caren Phillips: crackles/crepitus in upper anterior chest. NS is running at 100ml/hr. patient's PO intake is great would you like to slow or dc the fluids? thanks, zay [phone]
[2021-06-22] MEDS: rivaroxaban 20mg tablet PO SCH (17:22)
[2021-06-22 18:00] VITALS: BP 127/77
--- NOTE | 2021-06-22 18:09 | NUR ---
Problems reprioritized. Patient report given, questions answered & plan of care reviewed with KARYN Brownlee and KARYN Gaytan.
--- NOTE | 2021-06-22 18:32 | NUR ---
Patient in room [facility]. I have received report from KARYN Joseph and had the opportunity to ask questions and assume patient care.
[2021-06-22] MEDS: normal saline 1000ml 1,000 ML IV SCH (18:40)
--- NOTE | 2021-06-22 18:58 | NUR ---
Patient in room [facility]. I have received report from KARYN Joseph and had the opportunity to ask questions and assume patient care.
[2021-06-22] MEDS: doxepin 25mg capsule PO SCH (21:03)
[2021-06-23 00:01] VITALS: BP 98/64
[2021-06-23] MEDS: potassium Cl 20 mEq SR tablet PO PRN ×2 (00:19→04:18)
--- NOTE | 2021-06-23 06:11 | NUR ---
Problems reprioritized. Patient report given, questions answered & plan of care reviewed with KARYN Barbosa.
--- NOTE | 2021-06-23 06:12 | NUR ---
I agree with Lucila product safety engineer, assessments, and report given to KARYN Barbosa
[2021-06-23 06:13] LABS: EOSINOPHILS # (AUTO) 0.1 X10'3 (0-0.9); HEMOGLOBIN 9.4 g/dl (12.0-16.0); LYMPHOCYTES # (AUTO) 0.5 X10'3 (1.1-4.8); MEAN PLATELET VOLUME 9.7 FL (7.4-10.4); MONOCYTES # (AUTO) 0.5 X10'3 (0-0.9); MONOCYTES % (AUTO) 16.9 % (2-12); NEUTROPHILS # (AUTO) 1.6 X10'3 (1.8-7.7); NEUTROPHILS % (AUTO) 59.2 % (42-75); WHITE BLOOD COUNT 2.7 X10'3 (4.5-11.0)
[2021-06-23 06:17] LABS: BASOPHILS % (AUTO) 1.2 % (0-1); EOSINOPHILS % (AUTO) 3.2 % (0-6); HEMATOCRIT 27.3 % (35.0-45.0); LYMPHOCYTES % (AUTO) 19.5 % (21-51); MEAN CORPUSCULAR HEMOGLOBIN 34.8 PG (27.0-31.0); MEAN CORPUSCULAR HGB CONC 34.3 g/dL (33.0-36.5); MEAN CORPUSCULAR VOLUME 101.3 FL (78-98); PLATELET COUNT 57 X10'3 (140-440); RED BLOOD COUNT 2.69 X10'6 (4.20-5.60); RED CELL DISTRIBUTION WIDTH 16.1 % (11.5-14.5)
[2021-06-23 06:25] LABS: ALANINE AMINOTRANSFERASE 46 U/L (12-78); ALBUMIN 2.3 G/DL (3.4-5.0); ALKALINE PHOSPHATASE 112 IU/L (46-116); ANION GAP 3 (8-16); ASPARTATE AMINO TRANSFERASE 130 U/L (10-37); BILIRUBIN,TOTAL 6.3 MG/DL (0.1-1.0); BLOOD UREA NITROGEN 12 MG/DL (7-18); CALCIUM 8.2 MG/DL (8.5-10.1); CHLORIDE 99 MMOL/L (99-107); GLUCOSE 101 MG/DL (70-104); POTASSIUM 3.5 MMOL/L (3.5-5.1); SODIUM 131 MMOL/L (135-145); TOTAL CARBON DIOXIDE 29.5 MMOL/L (24-32); eGFR 73 ML/MIN
[2021-06-23 06:35] LABS: ALBUMIN/GLOBULIN RATIO 0.9 (1.1-1.5); TOTAL PROTEIN 4.8 G/DL (6.4-8.2)
[2021-06-23] MEDS: pantoprazole 40mg Tablet.DR PO SCH (07:19)
[2021-06-23] MEDS: docusate sod 100mg capsule PO SCH ×2 (07:20→20:37)
[2021-06-23] MEDS: nystatin 15 GM powder TP SCH ×3 (07:21→20:38)
[2021-06-23] MEDS: furosemide 40mg/4ml inj IV SCH ×3 (07:21→20:38)
[2021-06-23] MEDS: CefTRIAXone/D5W-Rocephin 1gm 50 ML IV SCH (07:22)
[2021-06-23] MEDS: K and/or MAG REPLACEMENT MC SCH ×4 (07:23→20:00)
[2021-06-23 07:30] VITALS: BP 111/59
[2021-06-23] MEDS: gabapentin 400mg capsule PO SCH ×2 (08:35→17:19)
--- NOTE | 2021-06-23 08:36 | NUR ---
Dr. Wasserman in to see patient. Addendum: 06/23/21 at 1033 by Familia Mesa RN Dr. Wasserman aware patient INR 4.0 received orders to JIM Cody.
--- NOTE | 2021-06-23 08:44 | NUR ---
PAGER ID: [phone] MESSAGE: [id number]- Alicia Golden- unable to change to DNR only can. Thank you- Familia [phone]
[2021-06-23 11:00] VITALS: BP 106/72
[2021-06-23] MEDS: salt irrigation nasal spray 45 ML SPRAY NS PRN (12:09)
[2021-06-23 14:24] LABS: TOTAL CELLS COUNTED 100
[2021-06-23 14:25] LABS: ANISOCYTOSIS 1+; PLATELET ESTIMATE DECREASED; TEAR DROP CELLS 1+
[2021-06-23] MEDS: potassium Cl 20 mEq SR tablet PO SCH (17:19)
--- NOTE | 2021-06-23 18:25 | NUR ---
Problems reprioritized. Patient report given, questions answered & plan of care reviewed with KARYN Pineda.
[2021-06-23] MEDS: doxepin 25mg capsule PO SCH (20:38)
[2021-06-23 23:31] VITALS: BP 131/57
[2021-06-24] VITALS: BP 108/65
[2021-06-24] MEDS: gabapentin 400mg capsule PO SCH ×4 (01:33→21:53)
[2021-06-24 07:00] VITALS: BP 114/60
[2021-06-24 07:12] LABS: MAGNESIUM 2.1 MG/DL (1.5-2.4); POTASSIUM 3.2 MMOL/L (3.5-5.1)
--- NOTE | 2021-06-24 07:56 | NUR ---
Reassessment: Pt continues on Sodium restricted diet w/ similar PO intake, avg 77% x 9 meals meeting estimated nutrient needs for IBW + 10% as current documented wt isn't scaled. Continue to recommend routine Thiamine, Folic acid, and MVI given EtOH hx with elevated MCV. LBM 06/22 receiving routine colace. Pt noted to continue to have anasarca. Will continue to follow and make recommendations as appropriate. Recommendations: 1) Advance to low fat diet as medically indicated; current hyponatremia though w/ anasarca 2) Monitor need for additional protein 3) Routine Thiamine, Folic acid, and MVI with MD approval in view of EtOH hx with elevated MCV 4) Routine bowel care 5) Scaled weight this admit; weekly scaled weights thereafter Addendum: 06/24/21 at [address] Amended: Links added.
[2021-06-24] MEDS: K and/or MAG REPLACEMENT MC SCH ×4 (08:00→20:00)
[2021-06-24] MEDS: furosemide 40mg/4ml inj IV SCH ×3 (09:49→21:53)
[2021-06-24] MEDS: pantoprazole 40mg Tablet.DR PO SCH (09:49)
[2021-06-24] MEDS: docusate sod 100mg capsule PO SCH ×2 (09:49→21:58)
[2021-06-24] MEDS: potassium Cl 20 mEq SR tablet PO SCH ×3 (09:49→21:57)
[2021-06-24] MEDS: nystatin 15 GM powder TP SCH ×3 (09:50→21:53)
[2021-06-24] MEDS: CefTRIAXone/D5W-Rocephin 1gm 50 ML IV SCH (09:58)
[2021-06-24 11:00] VITALS: BP 107/62
[2021-06-24] MEDS: potassium Cl 20 mEq SR tablet PO PRN ×2 (14:35→18:08)
[2021-06-24] MEDS: normal saline 1000ml 1,000 ML IV SCH (17:02)
[2021-06-24 20:00] VITALS: BP 116/69
[2021-06-24] MEDS: doxepin 25mg capsule PO SCH (21:53)
[2021-06-24] MEDS: temazepam 15mg capsule PO PRN (21:54)
[2021-06-25] VITALS: BP 99/75
[2021-06-25] MEDS: pantoprazole 40mg Tablet.DR PO SCH (07:59)
[2021-06-25] MEDS: docusate sod 100mg capsule PO SCH ×2 (07:59→20:29)
[2021-06-25] MEDS: nystatin 15 GM powder TP SCH ×3 (07:59→21:00)
[2021-06-25] MEDS: gabapentin 400mg capsule PO SCH ×3 (07:59→23:39)
[2021-06-25] MEDS: furosemide 40mg/4ml inj IV SCH ×3 (07:59→20:28)
[2021-06-25 08:00] VITALS: BP 119/78
[2021-06-25] MEDS: K and/or MAG REPLACEMENT MC SCH ×4 (08:00→20:00)
[2021-06-25] MEDS: CefTRIAXone/D5W-Rocephin 1gm 50 ML IV SCH (08:04)
[2021-06-25 11:00] VITALS: BP 103/78
[2021-06-25 12:24] LABS: BASOPHILS % (AUTO) 0.6 % (0-1); EOSINOPHILS # (AUTO) 0.1 X10'3 (0-0.9); EOSINOPHILS % (AUTO) 2.2 % (0-6); HEMOGLOBIN 10.9 g/dl (12.0-16.0); LYMPHOCYTES # (AUTO) 0.4 X10'3 (1.1-4.8); LYMPHOCYTES % (AUTO) 9.4 % (21-51); MEAN CORPUSCULAR HEMOGLOBIN 34.7 PG (27.0-31.0); MEAN CORPUSCULAR VOLUME 102.2 FL (78-98); MEAN PLATELET VOLUME 9.5 FL (7.4-10.4); MONOCYTES # (AUTO) 0.4 X10'3 (0-0.9); MONOCYTES % (AUTO) 9.7 % (2-12); NEUTROPHILS # (AUTO) 3.4 X10'3 (1.8-7.7); NEUTROPHILS % (AUTO) 78.1 % (42-75); PLATELET COUNT 71 X10'3 (140-440); RED BLOOD COUNT 3.13 X10'6 (4.20-5.60); RED CELL DISTRIBUTION WIDTH 15.5 % (11.5-14.5); WHITE BLOOD COUNT 4.3 X10'3 (4.5-11.0)
[2021-06-25 12:40] LABS: ALANINE AMINOTRANSFERASE 52 U/L (12-78); ALBUMIN 2.5 G/DL (3.4-5.0); ALBUMIN/GLOBULIN RATIO 0.7 (1.1-1.5); ALKALINE PHOSPHATASE 125 IU/L (46-116); ANION GAP 7 (8-16); ASPARTATE AMINO TRANSFERASE 142 U/L (10-37); BILIRUBIN,TOTAL 8.1 MG/DL (0.1-1.0); BLOOD UREA NITROGEN 15 MG/DL (7-18); BUN/CREATININE RATIO 20.8 (6.6-38.0); CALCIUM 8.1 MG/DL (8.5-10.1); CHLORIDE 99 MMOL/L (99-107); CREATININE 0.72 MG/DL (0.40-0.90); GLUCOSE 134 MG/DL (70-104); POTASSIUM 3.5 MMOL/L (3.5-5.1); SODIUM 134 MMOL/L (135-145); TOTAL CARBON DIOXIDE 28.3 MMOL/L (24-32); TOTAL PROTEIN 5.9 G/DL (6.4-8.2); eGFR 82 ML/MIN
[2021-06-25 13:32] LABS: LARGE PLATELETS FEW; PLATELET ESTIMATE DECREASED
[2021-06-25] MEDS: HYDROcodone/acetaminophen 5mg/325mg tablet PO PRN (17:20)
[2021-06-25] MEDS: potassium Cl 20 mEq SR tablet PO SCH (17:30)
--- NOTE | 2021-06-25 18:35 | NUR ---
Report given to Landy BOSS
[2021-06-25 20:00] VITALS: BP 102/74
[2021-06-25] MEDS: doxepin 25mg capsule PO SCH (20:28)
[2021-06-25] MEDS: rivaroxaban 15mg tablet PO SCH (20:28)
[2021-06-25] MEDS: temazepam 15mg capsule PO PRN (20:30)
[2021-06-25 23:34] VITALS: BP 102/60
[2021-06-26 06:15] LABS: POTASSIUM 3.3 MMOL/L (3.5-5.1)
[2021-06-26] MEDS: gabapentin 400mg capsule PO SCH ×2 (07:54→16:45)
[2021-06-26] MEDS: potassium Cl 20 mEq SR tablet PO SCH ×3 (07:54→22:11)
[2021-06-26] MEDS: docusate sod 100mg capsule PO SCH ×2 (07:55→19:30)
[2021-06-26] MEDS: furosemide 40mg/4ml inj IV SCH ×3 (07:55→21:12)
[2021-06-26] MEDS: pantoprazole 40mg Tablet.DR PO SCH (07:55)
[2021-06-26] MEDS: rivaroxaban 15mg tablet PO SCH ×2 (07:55→16:45)
[2021-06-26] MEDS: K and/or MAG REPLACEMENT MC SCH ×4 (08:00→20:00)
[2021-06-26] MEDS: CefTRIAXone/D5W-Rocephin 1gm 50 ML IV SCH (08:02)
[2021-06-26 08:05] VITALS: BP 104/60
[2021-06-26] MEDS: nystatin 15 GM powder TP SCH ×3 (08:05→21:13)
[2021-06-26] MEDS: HYDROcodone/acetaminophen 5mg/325mg tablet PO PRN ×3 (12:54→19:30)
--- NOTE | 2021-06-26 17:03 | NUR ---
left message for Dr Lopez to renew medication for Potassium/Mag protocol. Meds . Still providing scheduled potassium
--- NOTE | 2021-06-26 18:32 | NUR ---
Report received from Lea BOSS
[2021-06-26] MEDS: normal saline 1000ml 1,000 ML IV SCH (18:40)
[2021-06-26 19:00] VITALS: BP 128/73
[2021-06-26] MEDS: doxepin 25mg capsule PO SCH (21:11)
[2021-06-27] VITALS: BP 144/74
[2021-06-27] MEDS: gabapentin 400mg capsule PO SCH ×3 (00:22→15:32)
[2021-06-27 06:16] LABS: ALANINE AMINOTRANSFERASE 42 U/L (12-78); ALBUMIN 2.2 G/DL (3.4-5.0); ALKALINE PHOSPHATASE 119 IU/L (46-116); ANION GAP 6 (8-16); ASPARTATE AMINO TRANSFERASE 117 U/L (10-37); BILIRUBIN,TOTAL 6.1 MG/DL (0.1-1.0); BLOOD UREA NITROGEN 14 MG/DL (7-18); BUN/CREATININE RATIO 20.6 (6.6-38.0); CALCIUM 8.2 MG/DL (8.5-10.1); CHLORIDE 101 MMOL/L (99-107); CREATININE 0.68 MG/DL (0.40-0.90); POTASSIUM 3.4 MMOL/L (3.5-5.1); SODIUM 135 MMOL/L (135-145); TOTAL CARBON DIOXIDE 27.7 MMOL/L (24-32); eGFR 88 ML/MIN
[2021-06-27 06:18] LABS: ALBUMIN/GLOBULIN RATIO 0.8 (1.1-1.5); GLUCOSE 110 MG/DL (70-104); TOTAL PROTEIN 5.1 G/DL (6.4-8.2)
[2021-06-27] MEDS: rivaroxaban 15mg tablet PO SCH ×2 (08:16→18:23)
[2021-06-27] MEDS: furosemide 40mg/4ml inj IV SCH ×3 (08:17→21:05)
[2021-06-27] MEDS: potassium Cl 20 mEq SR tablet PO SCH ×2 (08:17→21:06)
[2021-06-27] MEDS: docusate sod 100mg capsule PO SCH ×2 (08:17→20:18)
[2021-06-27] MEDS: nystatin 15 GM powder TP SCH ×3 (08:17→21:00)
[2021-06-27] MEDS: pantoprazole 40mg Tablet.DR PO SCH (08:17)
[2021-06-27] MEDS: potassium Cl 20 mEq SR tablet PO PRN ×2 (08:18→15:34)
[2021-06-27] MEDS: K and/or MAG REPLACEMENT MC SCH ×4 (08:21→20:12)
[2021-06-27] MEDS: HYDROcodone/acetaminophen 5mg/325mg tablet PO PRN ×3 (08:24→20:10)
[2021-06-27 19:00] VITALS: BP 119/76
[2021-06-27] MEDS: doxepin 25mg capsule PO SCH (21:12)
[2021-06-28] VITALS: BP 114/72
[2021-06-28] MEDS: gabapentin 400mg capsule PO SCH ×3 (00:17→16:09)
--- NOTE | 2021-06-28 07:17 | NUR ---
Problems reprioritized. Patient report given, questions answered & plan of care reviewed with
[2021-06-28 08:00] VITALS: BP 127/64
[2021-06-28] MEDS: K and/or MAG REPLACEMENT MC SCH ×3 (08:00→20:00)
[2021-06-28 08:19] LABS: ALANINE AMINOTRANSFERASE 55 U/L (12-78); ALBUMIN 2.5 G/DL (3.4-5.0); ALKALINE PHOSPHATASE 154 IU/L (46-116); ANION GAP 10 (8-16); BILIRUBIN,TOTAL 6.8 MG/DL (0.1-1.0); BLOOD UREA NITROGEN 14 MG/DL (7-18); BUN/CREATININE RATIO 20.6 (6.6-38.0); CALCIUM 8.6 MG/DL (8.5-10.1); CHLORIDE 101 MMOL/L (99-107); CREATININE 0.68 MG/DL (0.40-0.90); SODIUM 135 MMOL/L (135-145); TOTAL CARBON DIOXIDE 24.4 MMOL/L (24-32); eGFR 88 ML/MIN
[2021-06-28 08:20] LABS: ALBUMIN/GLOBULIN RATIO 0.7 (1.1-1.5); ASPARTATE AMINO TRANSFERASE 159 U/L (10-37); GLUCOSE 105 MG/DL (70-104); POTASSIUM 4.8 MMOL/L (3.5-5.1)
[2021-06-28] MEDS: pantoprazole 40mg Tablet.DR PO SCH (08:34)
[2021-06-28] MEDS: docusate sod 100mg capsule PO SCH ×2 (08:35→19:59)
[2021-06-28] MEDS: rivaroxaban 15mg tablet PO SCH ×2 (08:37→17:26)
[2021-06-28] MEDS: furosemide 40mg/4ml inj IV SCH ×3 (08:37→20:38)
[2021-06-28] MEDS: nystatin 15 GM powder TP SCH ×3 (08:37→20:34)
[2021-06-28] MEDS: HYDROcodone/acetaminophen 5mg/325mg tablet PO PRN ×3 (08:40→17:26)
[2021-06-28 09:18] LABS: BASOPHILS % (AUTO) 0.5 % (0-1); EOSINOPHILS # (AUTO) 0.1 X10'3 (0-0.9); EOSINOPHILS % (AUTO) 2.9 % (0-6); HEMOGLOBIN 10.7 g/dl (12.0-16.0); LYMPHOCYTES # (AUTO) 0.6 X10'3 (1.1-4.8); LYMPHOCYTES % (AUTO) 16.2 % (21-51); MEAN CORPUSCULAR HEMOGLOBIN 34.4 PG (27.0-31.0); MEAN CORPUSCULAR HGB CONC 33.6 g/dL (33.0-36.5); MEAN CORPUSCULAR VOLUME 102.4 FL (78-98); MEAN PLATELET VOLUME 9.5 FL (7.4-10.4); MONOCYTES # (AUTO) 0.4 X10'3 (0-0.9); MONOCYTES % (AUTO) 10.5 % (2-12); NEUTROPHILS # (AUTO) 2.5 X10'3 (1.8-7.7); NEUTROPHILS % (AUTO) 69.9 % (42-75); PLATELET COUNT 75 X10'3 (140-440); RED BLOOD COUNT 3.12 X10'6 (4.20-5.60); RED CELL DISTRIBUTION WIDTH 15.6 % (11.5-14.5); WHITE BLOOD COUNT 3.6 X10'3 (4.5-11.0)
[2021-06-28 11:00] VITALS: BP 106/56
[2021-06-28] MEDS: potassium Cl 20 mEq SR tablet PO SCH (17:26)
[2021-06-28 18:30] VITALS: BP 100/68
--- NOTE | 2021-06-28 18:40 | NUR ---
Report given to Edwin BOSS, all questions answered, no current concerns. Pt in bed eating dinner.
[2021-06-28] MEDS: normal saline 1000ml 1,000 ML IV SCH (20:00)
[2021-06-28] MEDS: doxepin 25mg capsule PO SCH (20:38)
[2021-06-29] VITALS: BP 102/68
[2021-06-29] MEDS: gabapentin 400mg capsule PO SCH ×4 (00:01→23:52)
[2021-06-29 06:07] LABS: ALANINE AMINOTRANSFERASE 47 U/L (12-78); ALBUMIN 2.1 G/DL (3.4-5.0); ALKALINE PHOSPHATASE 133 IU/L (46-116); ANION GAP 7 (8-16); ASPARTATE AMINO TRANSFERASE 130 U/L (10-37); BILIRUBIN,TOTAL 5.9 MG/DL (0.1-1.0); BLOOD UREA NITROGEN 16 MG/DL (7-18); BUN/CREATININE RATIO 23.2 (6.6-38.0); CALCIUM 8.3 MG/DL (8.5-10.1); CHLORIDE 100 MMOL/L (99-107); CREATININE 0.69 MG/DL (0.40-0.90); POTASSIUM 4.1 MMOL/L (3.5-5.1); SODIUM 134 MMOL/L (135-145); TOTAL CARBON DIOXIDE 26.9 MMOL/L (24-32); eGFR 86 ML/MIN
[2021-06-29 06:13] LABS: ALBUMIN/GLOBULIN RATIO 0.7 (1.1-1.5); GLUCOSE 109 MG/DL (70-104); TOTAL PROTEIN 5.2 G/DL (6.4-8.2)
[2021-06-29 06:15] LABS: EOSINOPHILS # (AUTO) 0.1 X10'3 (0-0.9); LYMPHOCYTES # (AUTO) 0.6 X10'3 (1.1-4.8); MONOCYTES # (AUTO) 0.4 X10'3 (0-0.9); NEUTROPHILS # (AUTO) 2.3 X10'3 (1.8-7.7)
[2021-06-29 06:17] LABS: BASOPHILS % (AUTO) 0.7 % (0-1); EOSINOPHILS % (AUTO) 2.9 % (0-6); HEMOGLOBIN 9.7 g/dl (12.0-16.0); LYMPHOCYTES % (AUTO) 18.3 % (21-51); MEAN CORPUSCULAR HEMOGLOBIN 34.9 PG (27.0-31.0); MEAN CORPUSCULAR HGB CONC 34.6 g/dL (33.0-36.5); MEAN CORPUSCULAR VOLUME 100.8 FL (78-98); MEAN PLATELET VOLUME 9.2 FL (7.4-10.4); MONOCYTES % (AUTO) 10.7 % (2-12); NEUTROPHILS % (AUTO) 67.4 % (42-75); PLATELET COUNT 85 X10'3 (140-440); RED BLOOD COUNT 2.78 X10'6 (4.20-5.60); RED CELL DISTRIBUTION WIDTH 15.3 % (11.5-14.5); WHITE BLOOD COUNT 3.5 X10'3 (4.5-11.0)
--- NOTE | 2021-06-29 07:01 | NUR ---
Problems reprioritized. Patient report given, questions answered & plan of care reviewed with KAMRAN. Addendum: 06/29/21 at 0702 by Heriberto Wiseman RN Amended: Links added.
[2021-06-29] MEDS: docusate sod 100mg capsule PO SCH ×2 (08:24→21:13)
[2021-06-29] MEDS: furosemide 40mg/4ml inj IV SCH ×3 (08:24→21:12)
[2021-06-29] MEDS: pantoprazole 40mg Tablet.DR PO SCH (08:25)
[2021-06-29] MEDS: rivaroxaban 15mg tablet PO SCH ×2 (08:25→17:33)
[2021-06-29] MEDS: nystatin 15 GM powder TP SCH ×3 (08:25→21:12)
[2021-06-29] MEDS: HYDROcodone/acetaminophen 5mg/325mg tablet PO PRN ×3 (08:25→21:13)
[2021-06-29] MEDS: potassium Cl 20 mEq SR tablet PO SCH ×2 (08:29→17:33)
[2021-06-29] MEDS: K and/or MAG REPLACEMENT MC SCH ×2 (08:36→20:00)
[2021-06-29 13:57] VITALS: BP 112/61
[2021-06-29 18:00] VITALS: BP 108/53
[2021-06-29] MEDS: doxepin 25mg capsule PO SCH (21:12)
[2021-06-30] VITALS: BP 109/55
--- NOTE | 2021-06-30 06:30 | NUR ---
Change of shift report given to Lea RN Addendum: 06/30/21 at 0700 by Marlene Hanley RN Amended: Links added.
[2021-06-30 07:00] VITALS: BP 112/64
[2021-06-30] MEDS: rivaroxaban 15mg tablet PO SCH ×2 (09:05→17:43)
[2021-06-30] MEDS: potassium Cl 20 mEq SR tablet PO SCH ×2 (09:06→17:43)
[2021-06-30] MEDS: gabapentin 400mg capsule PO SCH ×2 (09:06→17:48)
[2021-06-30] MEDS: pantoprazole 40mg Tablet.DR PO SCH (09:06)
[2021-06-30] MEDS: HYDROcodone/acetaminophen 5mg/325mg tablet PO PRN ×3 (09:06→17:44)
[2021-06-30] MEDS: furosemide 40mg/4ml inj IV SCH ×3 (09:06→20:46)
[2021-06-30] MEDS: docusate sod 100mg capsule PO SCH ×2 (09:07→20:45)
[2021-06-30] MEDS: nystatin 15 GM powder TP SCH ×3 (09:07→20:46)
[2021-06-30] MEDS: salt irrigation nasal spray 45 ML SPRAY NS PRN (09:13)
[2021-06-30 12:00] VITALS: BP 113/78
--- NOTE | 2021-06-30 13:51 | NUR ---
upon going into [facility] room, noticed she was saturated in blood. Noticed her midline had dislodged. Informed charge nurse, applied pressure and wrapped with gauze continuing to apply pressure. Informed Dr López
--- NOTE | 2021-06-30 14:45 | NUR ---
Reassessment: Pt continues on Sodium restricted diet w/ slightly improved intake, now mostly 100% of meals since 06/27 meeting estimated nutrient needs for IBW + 10% as current documented wt isn't scaled. Continue to recommend routine Thiamine, Folic acid, and MVI given EtOH hx with elevated MCV. LBM 06/29 receiving routine colace. Pt noted to continue to have anasarca. Will continue to follow and make recommendations as appropriate. Recommendations: 1) Continue Sodium restricted diet as tolerated 2) Monitor need for additional protein 3) Routine Thiamine, Folic acid, and MVI with MD approval in view of EtOH hx with elevated MCV 4) Routine bowel care 5) Scaled weight this admit; weekly scaled weights thereafter Addendum: 06/30/21 at [address] Amended: Links added.
[2021-06-30 15:18] LABS: HEMOGLOBIN 9.5 g/dl (12.0-16.0); MEAN CORPUSCULAR HEMOGLOBIN 34.8 PG (27.0-31.0); MEAN CORPUSCULAR VOLUME 102.4 FL (78-98); MEAN PLATELET VOLUME 11.5 FL (7.4-10.4); PLATELET COUNT 129 X10'3 (140-440); RED BLOOD COUNT 2.73 X10'6 (4.20-5.60); RED CELL DISTRIBUTION WIDTH 15.7 % (11.5-14.5)
--- NOTE | 2021-06-30 16:47 | NUR ---
called laboratory because labs still need to be drawn on patient. Juvenile Justice Specialist will be coming soon
[2021-06-30 17:37] LABS: ALANINE AMINOTRANSFERASE 46 U/L (12-78); ALBUMIN 2.1 G/DL (3.4-5.0); ALBUMIN/GLOBULIN RATIO 0.7 (1.1-1.5); ALKALINE PHOSPHATASE 131 IU/L (46-116); ANION GAP 7 (8-16); ASPARTATE AMINO TRANSFERASE 126 U/L (10-37); BASOPHILS % (AUTO) 0.7 % (0-1); BILIRUBIN,TOTAL 5.6 MG/DL (0.1-1.0); BLOOD UREA NITROGEN 20 MG/DL (7-18); BUN/CREATININE RATIO 24.7 (6.6-38.0); CHLORIDE 101 MMOL/L (99-107); CREATININE 0.81 MG/DL (0.40-0.90); EOSINOPHILS # (AUTO) 0.1 X10'3 (0-0.9); EOSINOPHILS % (AUTO) 1.7 % (0-6); GLUCOSE 136 MG/DL (70-104); HEMATOCRIT 27.4 % (35.0-45.0); HEMOGLOBIN 9.4 g/dl (12.0-16.0); LYMPHOCYTES # (AUTO) 0.6 X10'3 (1.1-4.8); LYMPHOCYTES % (AUTO) 13.5 % (21-51); MEAN CORPUSCULAR HEMOGLOBIN 34.6 PG (27.0-31.0); MEAN CORPUSCULAR HGB CONC 34.3 g/dL (33.0-36.5); MEAN CORPUSCULAR VOLUME 100.8 FL (78-98); MEAN PLATELET VOLUME 9.5 FL (7.4-10.4); MONOCYTES # (AUTO) 0.5 X10'3 (0-0.9); MONOCYTES % (AUTO) 10.5 % (2-12); NEUTROPHILS # (AUTO) 3.5 X10'3 (1.8-7.7); NEUTROPHILS % (AUTO) 73.6 % (42-75); PLATELET COUNT 96 X10'3 (140-440); POTASSIUM 4.1 MMOL/L (3.5-5.1); RED BLOOD COUNT 2.72 X10'6 (4.20-5.60); RED CELL DISTRIBUTION WIDTH 15.1 % (11.5-14.5); SODIUM 135 MMOL/L (135-145); TOTAL CARBON DIOXIDE 26.6 MMOL/L (24-32); TOTAL PROTEIN 5.1 G/DL (6.4-8.2); WHITE BLOOD COUNT 4.8 X10'3 (4.5-11.0); eGFR 72 ML/MIN
[2021-06-30 18:40] VITALS: BP 126/77
[2021-06-30] MEDS: K and/or MAG REPLACEMENT MC SCH ×2 (18:55→20:00)
[2021-06-30] MEDS: doxepin 25mg capsule PO SCH (20:46)
[2021-07-01] MEDS: gabapentin 400mg capsule PO SCH ×4 (00:51→23:42)
[2021-07-01] MEDS: HYDROcodone/acetaminophen 5mg/325mg tablet PO PRN ×4 (00:56→16:35)
--- NOTE | 2021-07-01 06:19 | NUR ---
Problems reprioritized. Patient report given, questions answered & plan of care reviewed with KAMRAN. Addendum: 07/01/21 at 0619 by Heriberto Wiseman RN Amended: Links added.
[2021-07-01 06:40] LABS: BASOPHILS % (AUTO) 0.8 % (0-1); EOSINOPHILS # (AUTO) 0.1 X10'3 (0-0.9); HEMOGLOBIN 8.7 g/dl (12.0-16.0); WHITE BLOOD COUNT 3.4 X10'3 (4.5-11.0)
[2021-07-01 06:44] LABS: EOSINOPHILS % (AUTO) 2.9 % (0-6); HEMATOCRIT 24.6 % (35.0-45.0); LYMPHOCYTES # (AUTO) 0.7 X10'3 (1.1-4.8); LYMPHOCYTES % (AUTO) 20.4 % (21-51); MEAN CORPUSCULAR HEMOGLOBIN 35.4 PG (27.0-31.0); MEAN CORPUSCULAR HGB CONC 35.3 g/dL (33.0-36.5); MEAN CORPUSCULAR VOLUME 100.3 FL (78-98); MEAN PLATELET VOLUME 9.2 FL (7.4-10.4); MONOCYTES # (AUTO) 0.4 X10'3 (0-0.9); MONOCYTES % (AUTO) 12.6 % (2-12); NEUTROPHILS # (AUTO) 2.2 X10'3 (1.8-7.7); NEUTROPHILS % (AUTO) 63.3 % (42-75); PLATELET COUNT 87 X10'3 (140-440); RED BLOOD COUNT 2.45 X10'6 (4.20-5.60); RED CELL DISTRIBUTION WIDTH 15.1 % (11.5-14.5)
[2021-07-01 06:51] LABS: ALANINE AMINOTRANSFERASE 44 U/L (12-78); ALKALINE PHOSPHATASE 137 IU/L (46-116); ANION GAP 6 (8-16); ASPARTATE AMINO TRANSFERASE 117 U/L (10-37); BILIRUBIN,TOTAL 4.9 MG/DL (0.1-1.0); BLOOD UREA NITROGEN 20 MG/DL (7-18); BUN/CREATININE RATIO 27.8 (6.6-38.0); CALCIUM 8.4 MG/DL (8.5-10.1); CHLORIDE 104 MMOL/L (99-107); CREATININE 0.72 MG/DL (0.40-0.90); GLUCOSE 110 MG/DL (70-104); SODIUM 135 MMOL/L (135-145); TOTAL CARBON DIOXIDE 24.8 MMOL/L (24-32); eGFR 82 ML/MIN
[2021-07-01 06:53] LABS: ALBUMIN/GLOBULIN RATIO 0.7 (1.1-1.5); POTASSIUM 4.1 MMOL/L (3.5-5.1); TOTAL PROTEIN 4.8 G/DL (6.4-8.2)
[2021-07-01 08:00] VITALS: BP 91/62
[2021-07-01] MEDS: furosemide 40mg/4ml inj IV SCH ×3 (08:32→20:06)
[2021-07-01] MEDS: rivaroxaban 15mg tablet PO SCH ×2 (08:33→18:03)
[2021-07-01] MEDS: pantoprazole 40mg Tablet.DR PO SCH (08:33)
[2021-07-01] MEDS: docusate sod 100mg capsule PO SCH ×2 (08:33→20:06)
[2021-07-01] MEDS: K and/or MAG REPLACEMENT MC SCH ×2 (08:36→20:00)
[2021-07-01] MEDS: nystatin 15 GM powder TP SCH ×3 (08:38→20:06)
[2021-07-01] MEDS: potassium Cl 20 mEq SR tablet PO SCH ×2 (10:03→18:03)
[2021-07-01 12:00] VITALS: BP 137/66
--- NOTE | 2021-07-01 18:57 | NUR ---
Patient in room [facility]. I have received report from KARYN Tate and had the opportunity to ask questions and assume patient care.
[2021-07-01 20:00] VITALS: BP 113/69
[2021-07-01] MEDS: CLINDAMYCIN 300mg/NS 50ml IVPB 50 ML IV SCH (20:05)
[2021-07-01] MEDS: doxepin 25mg capsule PO SCH (20:05)
[2021-07-02] VITALS: BP 114/68
[2021-07-02] MEDS: HYDROcodone/acetaminophen 5mg/325mg tablet PO PRN ×5 (00:38→23:33)
[2021-07-02] MEDS: CLINDAMYCIN 300mg/NS 50ml IVPB 50 ML IV SCH (01:54)
--- NOTE | 2021-07-02 06:14 | NUR ---
Problems reprioritized. Patient report given, questions answered & plan of care reviewed with KARYN Tate.
[2021-07-02 06:42] LABS: BASOPHILS % (AUTO) 1.3 % (0-1); EOSINOPHILS # (AUTO) 0.1 X10'3 (0-0.9); HEMATOCRIT 24.4 % (35.0-45.0); HEMOGLOBIN 8.5 g/dl (12.0-16.0); LYMPHOCYTES # (AUTO) 0.7 X10'3 (1.1-4.8); LYMPHOCYTES % (AUTO) 23.1 % (21-51); MEAN CORPUSCULAR HEMOGLOBIN 35.9 PG (27.0-31.0); MEAN CORPUSCULAR HGB CONC 34.9 g/dL (33.0-36.5); MEAN CORPUSCULAR VOLUME 102.8 FL (78-98); MEAN PLATELET VOLUME 9.7 FL (7.4-10.4); MONOCYTES # (AUTO) 0.5 X10'3 (0-0.9); MONOCYTES % (AUTO) 14.5 % (2-12); NEUTROPHILS # (AUTO) 1.9 X10'3 (1.8-7.7); NEUTROPHILS % (AUTO) 58.1 % (42-75); PLATELET COUNT 80 X10'3 (140-440); RED BLOOD COUNT 2.37 X10'6 (4.20-5.60); RED CELL DISTRIBUTION WIDTH 15.5 % (11.5-14.5); WHITE BLOOD COUNT 3.2 X10'3 (4.5-11.0)
[2021-07-02 07:03] LABS: ALANINE AMINOTRANSFERASE 41 U/L (12-78); ALBUMIN 2.1 G/DL (3.4-5.0); ALKALINE PHOSPHATASE 131 IU/L (46-116); ANION GAP 8 (8-16); ASPARTATE AMINO TRANSFERASE 128 U/L (10-37); BLOOD UREA NITROGEN 21 MG/DL (7-18); BUN/CREATININE RATIO 27.3 (6.6-38.0); CALCIUM 8.5 MG/DL (8.5-10.1); CHLORIDE 103 MMOL/L (99-107); CREATININE 0.77 MG/DL (0.40-0.90); GLUCOSE 113 MG/DL (70-104); SODIUM 136 MMOL/L (135-145); eGFR 76 ML/MIN
[2021-07-02 07:25] LABS: ALBUMIN/GLOBULIN RATIO 0.7 (1.1-1.5); POTASSIUM 4.4 MMOL/L (3.5-5.1); TOTAL PROTEIN 5.2 G/DL (6.4-8.2)
[2021-07-02] MEDS: gabapentin 400mg capsule PO SCH ×3 (07:32→23:31)
[2021-07-02] MEDS: potassium Cl 20 mEq SR tablet PO SCH ×2 (07:32→16:54)
[2021-07-02] MEDS: rivaroxaban 15mg tablet PO SCH ×2 (07:32→16:54)
[2021-07-02] MEDS: furosemide 40mg/4ml inj IV SCH ×3 (07:33→20:29)
[2021-07-02] MEDS: pantoprazole 40mg Tablet.DR PO SCH (07:34)
[2021-07-02] MEDS: docusate sod 100mg capsule PO SCH ×2 (07:35→20:29)
[2021-07-02 08:00] VITALS: BP 127/72
[2021-07-02] MEDS ORDERED: clindamycin 300mg/D5W 50mL 50 ML IV SCH (08:00)
[2021-07-02] MEDS: K and/or MAG REPLACEMENT MC SCH ×2 (08:00→20:00)
[2021-07-02 12:00] VITALS: BP 104/69
[2021-07-02] MEDS: nystatin 15 GM powder TP SCH ×3 (13:32→20:29)
--- NOTE | 2021-07-02 18:35 | NUR ---
Patient in room [facility]. I have received report from KARYN Tate and had the opportunity to ask questions and assume patient care.
[2021-07-02 20:00] VITALS: BP 134/80
[2021-07-02] MEDS: doxepin 25mg capsule PO SCH (20:29)
[2021-07-03] VITALS: BP 124/62
--- NOTE | 2021-07-03 06:13 | NUR ---
Patient in room [facility] 346. I have received report from Lucila BOSS and had the opportunity to ask questions and assume patient care. Patient resting well eyes closed.
[2021-07-03 08:00] VITALS: BP 117/66
[2021-07-03] MEDS: K and/or MAG REPLACEMENT MC SCH ×2 (08:00→20:00)
[2021-07-03] MEDS: gabapentin 400mg capsule PO SCH ×2 (08:32→16:06)
[2021-07-03] MEDS: docusate sod 100mg capsule PO SCH ×2 (08:32→20:16)
[2021-07-03] MEDS: rivaroxaban 15mg tablet PO SCH ×2 (08:32→17:18)
[2021-07-03] MEDS: pantoprazole 40mg Tablet.DR PO SCH (08:32)
[2021-07-03] MEDS: furosemide 40mg/4ml inj IV SCH ×3 (08:33→20:16)
[2021-07-03] MEDS: potassium Cl 20 mEq SR tablet PO SCH ×2 (08:33→17:18)
[2021-07-03] MEDS: nystatin 15 GM powder TP SCH ×3 (08:39→20:16)
[2021-07-03 11:24] LABS: BASOPHILS % (AUTO) 0.5 % (0-1); EOSINOPHILS # (AUTO) 0.1 X10'3 (0-0.9); EOSINOPHILS % (AUTO) 2.4 % (0-6); HEMOGLOBIN 8.2 g/dl (12.0-16.0); LYMPHOCYTES # (AUTO) 0.6 X10'3 (1.1-4.8); LYMPHOCYTES % (AUTO) 15.4 % (21-51); MEAN CORPUSCULAR HEMOGLOBIN 35.1 PG (27.0-31.0); MEAN CORPUSCULAR HGB CONC 34.1 g/dL (33.0-36.5); MEAN PLATELET VOLUME 9.5 FL (7.4-10.4); MONOCYTES # (AUTO) 0.6 X10'3 (0-0.9); NEUTROPHILS # (AUTO) 2.7 X10'3 (1.8-7.7); NEUTROPHILS % (AUTO) 67.7 % (42-75); PLATELET COUNT 91 X10'3 (140-440); RED BLOOD COUNT 2.33 X10'6 (4.20-5.60); RED CELL DISTRIBUTION WIDTH 15.2 % (11.5-14.5)
[2021-07-03 11:50] LABS: ALANINE AMINOTRANSFERASE 53 U/L (12-78); ALBUMIN 2.2 G/DL (3.4-5.0); ALKALINE PHOSPHATASE 142 IU/L (46-116); ANION GAP 10 (8-16); ASPARTATE AMINO TRANSFERASE 148 U/L (10-37); BILIRUBIN,TOTAL 5.3 MG/DL (0.1-1.0); BLOOD UREA NITROGEN 23 MG/DL (7-18); BUN/CREATININE RATIO 29.5 (6.6-38.0); CALCIUM 8.4 MG/DL (8.5-10.1); CHLORIDE 100 MMOL/L (99-107); CREATININE 0.78 MG/DL (0.40-0.90); POTASSIUM 4.2 MMOL/L (3.5-5.1); SODIUM 133 MMOL/L (135-145); TOTAL CARBON DIOXIDE 22.9 MMOL/L (24-32); eGFR 75 ML/MIN
[2021-07-03 11:55] LABS: ALBUMIN/GLOBULIN RATIO 0.6 (1.1-1.5); GLUCOSE 135 MG/DL (70-104); TOTAL PROTEIN 5.7 G/DL (6.4-8.2)
[2021-07-03 12:00] VITALS: BP 125/95
[2021-07-03] MEDS: HYDROcodone/acetaminophen 5mg/325mg tablet PO PRN ×2 (12:47→17:21)
--- NOTE | 2021-07-03 18:10 | NUR ---
Problems reprioritized. Patient report given, questions answered & plan of care reviewed with Lucila BOSS.
--- NOTE | 2021-07-03 19:08 | NUR ---
Patient in room [facility] 346. I have received report from KARYN Levin and had the opportunity to ask questions and assume patient care.
[2021-07-03 20:00] VITALS: BP 126/73
[2021-07-03] MEDS: doxepin 25mg capsule PO SCH (20:16)
[2021-07-04] VITALS: BP 125/59
[2021-07-04] MEDS: gabapentin 400mg capsule PO SCH ×3 (00:17→16:59)
[2021-07-04 07:00] VITALS: BP 127/70
[2021-07-04] MEDS: K and/or MAG REPLACEMENT MC SCH ×2 (07:13→20:00)
[2021-07-04 07:44] LABS: BASOPHILS % (AUTO) 0.5 % (0-1); EOSINOPHILS # (AUTO) 0.1 X10'3 (0-0.9); EOSINOPHILS % (AUTO) 2.9 % (0-6); HEMATOCRIT 23.1 % (35.0-45.0); HEMOGLOBIN 7.9 g/dl (12.0-16.0); LYMPHOCYTES # (AUTO) 0.7 X10'3 (1.1-4.8); LYMPHOCYTES % (AUTO) 19.1 % (21-51); MEAN CORPUSCULAR HEMOGLOBIN 34.8 PG (27.0-31.0); MEAN CORPUSCULAR VOLUME 102.3 FL (78-98); MEAN PLATELET VOLUME 9.3 FL (7.4-10.4); MONOCYTES # (AUTO) 0.5 X10'3 (0-0.9); MONOCYTES % (AUTO) 13.8 % (2-12); NEUTROPHILS # (AUTO) 2.4 X10'3 (1.8-7.7); NEUTROPHILS % (AUTO) 63.7 % (42-75); PLATELET COUNT 94 X10'3 (140-440); RED BLOOD COUNT 2.26 X10'6 (4.20-5.60); RED CELL DISTRIBUTION WIDTH 15.6 % (11.5-14.5); WHITE BLOOD COUNT 3.8 X10'3 (4.5-11.0)
[2021-07-04 08:07] LABS: ALANINE AMINOTRANSFERASE 53 U/L (12-78); ALBUMIN 2.1 G/DL (3.4-5.0); ALKALINE PHOSPHATASE 143 IU/L (46-116); ANION GAP 7 (8-16); ASPARTATE AMINO TRANSFERASE 136 U/L (10-37); BILIRUBIN,TOTAL 4.9 MG/DL (0.1-1.0); BLOOD UREA NITROGEN 23 MG/DL (7-18); BUN/CREATININE RATIO 30.7 (6.6-38.0); CALCIUM 8.4 MG/DL (8.5-10.1); CHLORIDE 103 MMOL/L (99-107); CREATININE 0.75 MG/DL (0.40-0.90); POTASSIUM 4.1 MMOL/L (3.5-5.1); SODIUM 135 MMOL/L (135-145); TOTAL CARBON DIOXIDE 24.9 MMOL/L (24-32); eGFR 78 ML/MIN
[2021-07-04 08:09] LABS: ALBUMIN/GLOBULIN RATIO 0.7 (1.1-1.5); GLUCOSE 120 MG/DL (70-104); TOTAL PROTEIN 5.3 G/DL (6.4-8.2)
--- NOTE | 2021-07-04 08:43 | NUR ---
Problems reprioritized. Patient report given, questions answered & plan of care reviewed with emilie nunes.
[2021-07-04] MEDS: furosemide 40mg/4ml inj IV SCH ×2 (08:45→20:32)
[2021-07-04] MEDS: docusate sod 100mg capsule PO SCH ×2 (08:45→20:31)
[2021-07-04] MEDS: HYDROcodone/acetaminophen 5mg/325mg tablet PO PRN ×3 (08:45→19:29)
[2021-07-04] MEDS: potassium Cl 20 mEq SR tablet PO SCH ×2 (08:45→16:59)
[2021-07-04] MEDS: pantoprazole 40mg Tablet.DR PO SCH (08:46)
[2021-07-04] MEDS: rivaroxaban 15mg tablet PO SCH ×2 (08:46→16:59)
[2021-07-04] MEDS: nystatin 15 GM powder TP SCH ×3 (08:46→20:32)
[2021-07-04] MEDS ORDERED: furosemide 40mg/4ml inj IV ONE (10:05)
[2021-07-04 10:39] VITALS: BP 119/69
[2021-07-04] MEDS: spironolactone 50 MG tablet PO SCH (10:44)
[2021-07-04 11:00] VITALS: BP 117/67
--- NOTE | 2021-07-04 18:30 | NUR ---
Patient in room [facility]. I have received report from SIENA and had the opportunity to ask questions and assume patient care.
[2021-07-04 19:00] VITALS: BP 164/71
--- NOTE | 2021-07-04 19:07 | NUR ---
Problems reprioritized. Patient report given, questions answered & plan of care reviewed with Rachel BOSS.
[2021-07-04] MEDS: doxepin 25mg capsule PO SCH (20:31)
[2021-07-04 23:00] VITALS: BP 140/72
[2021-07-05] MEDS: gabapentin 400mg capsule PO SCH ×3 (00:17→16:30)
[2021-07-05 06:00] VITALS: BP 103/68
--- NOTE | 2021-07-05 06:59 | NUR ---
Problems reprioritized. Patient report given, questions answered & plan of care reviewed with JOEL.
--- NOTE | 2021-07-05 07:10 | NUR ---
Patient in room [facility]. I have received report from KARYN Ramos and had the opportunity to ask questions and assume patient care.
[2021-07-05 07:31] LABS: BASOPHILS % (AUTO) 0.8 % (0-1); EOSINOPHILS # (AUTO) 0.1 X10'3 (0-0.9); EOSINOPHILS % (AUTO) 3.1 % (0-6); HEMOGLOBIN 7.4 g/dl (12.0-16.0); LYMPHOCYTES # (AUTO) 0.7 X10'3 (1.1-4.8); LYMPHOCYTES % (AUTO) 20.2 % (21-51); MEAN CORPUSCULAR HEMOGLOBIN 34.8 PG (27.0-31.0); MEAN CORPUSCULAR HGB CONC 34.6 g/dL (33.0-36.5); MEAN CORPUSCULAR VOLUME 100.6 FL (78-98); MEAN PLATELET VOLUME 9.3 FL (7.4-10.4); MONOCYTES # (AUTO) 0.5 X10'3 (0-0.9); MONOCYTES % (AUTO) 15.3 % (2-12); NEUTROPHILS # (AUTO) 2.1 X10'3 (1.8-7.7); NEUTROPHILS % (AUTO) 60.6 % (42-75); PLATELET COUNT 93 X10'3 (140-440); RED BLOOD COUNT 2.12 X10'6 (4.20-5.60); RED CELL DISTRIBUTION WIDTH 15.2 % (11.5-14.5); WHITE BLOOD COUNT 3.4 X10'3 (4.5-11.0)
[2021-07-05 07:52] LABS: HEMATOCRIT 21.3 % (35.0-45.0)
[2021-07-05] MEDS: K and/or MAG REPLACEMENT MC SCH ×2 (08:00→20:00)
[2021-07-05 08:01] LABS: ALANINE AMINOTRANSFERASE 54 U/L (12-78); ALBUMIN 2.1 G/DL (3.4-5.0); ALKALINE PHOSPHATASE 138 IU/L (46-116); ANION GAP 7 (8-16); ASPARTATE AMINO TRANSFERASE 139 U/L (10-37); BILIRUBIN,TOTAL 5.3 MG/DL (0.1-1.0); BLOOD UREA NITROGEN 20 MG/DL (7-18); BUN/CREATININE RATIO 28.6 (6.6-38.0); CALCIUM 8.5 MG/DL (8.5-10.1); CHLORIDE 103 MMOL/L (99-107); POTASSIUM 3.8 MMOL/L (3.5-5.1); SODIUM 135 MMOL/L (135-145); TOTAL CARBON DIOXIDE 25.3 MMOL/L (24-32); eGFR 85 ML/MIN
[2021-07-05 08:10] LABS: ALBUMIN/GLOBULIN RATIO 0.7 (1.1-1.5); GLUCOSE 110 MG/DL (70-104); TOTAL PROTEIN 5.3 G/DL (6.4-8.2)
[2021-07-05] MEDS: docusate sod 100mg capsule PO SCH ×2 (08:42→21:16)
[2021-07-05] MEDS: furosemide 40mg/4ml inj IV SCH ×2 (08:42→21:16)
[2021-07-05] MEDS: potassium Cl 20 mEq SR tablet PO SCH ×2 (08:42→18:55)
[2021-07-05] MEDS: spironolactone 50 MG tablet PO SCH (08:43)
[2021-07-05] MEDS: HYDROcodone/acetaminophen 5mg/325mg tablet PO PRN ×3 (08:44→18:55)
[2021-07-05] MEDS: nystatin 15 GM powder TP SCH ×3 (08:45→21:16)
[2021-07-05] MEDS: rivaroxaban 15mg tablet PO SCH ×2 (08:55→18:55)
[2021-07-05] MEDS: pantoprazole 40mg Tablet.DR PO SCH (08:55)
[2021-07-05 12:00] VITALS: BP 99/61
[2021-07-05 18:30] VITALS: BP 100/67
--- NOTE | 2021-07-05 18:38 | NUR ---
Problems reprioritized. Patient report given, questions answered & plan of care reviewed with KARYN Pineda.
[2021-07-05 19:00] VITALS: BP 100/67
[2021-07-05] MEDS: doxepin 25mg capsule PO SCH (21:16)
[2021-07-06] VITALS: BP 100/58
[2021-07-06] MEDS: gabapentin 400mg capsule PO SCH ×3 (00:17→17:36)
--- NOTE | 2021-07-06 06:19 | NUR ---
Problems reprioritized. Patient report given, questions answered & plan of care reviewed with CHLOE. Addendum: 07/06/21 at 0620 by Heriberto Wiseman RN Amended: Links added.
--- NOTE | 2021-07-06 06:31 | NUR ---
Problems reprioritized. Patient report given, questions answered & plan of care reviewed with CHLOE. Addendum: 07/06/21 at 0631 by Heriberto Wiseman RN Amended: Links added.
--- NOTE | 2021-07-06 06:57 | NUR ---
Patient in room [facility] 346. I have received report from ZEYNEP BOSS and had the opportunity to ask questions and assume patient care.
[2021-07-06 07:04] VITALS: BP 102/65
--- NOTE | 2021-07-06 07:49 | NUR ---
Reassessment: Pt continues on Sodium restricted diet w/ slightly lower intake, avg 72% of meals since 07/02 likely meeting estimated nutrient needs for IBW + 10% as current documented wt isn't scaled. Continue to recommend routine Thiamine, Folic acid, and MVI given EtOH hx with elevated MCV. LBM 1/2 receiving routine colace. Pt noted to continue to have anasarca. Will continue to follow and make recommendations as appropriate. Recommendations: 1) Continue Sodium restricted diet as tolerated 2) Monitor need for additional protein 3) Routine Thiamine, Folic acid, and MVI with MD approval in view of EtOH hx with elevated MCV 4) Routine bowel care 5) Scaled weight this admit; weekly scaled weights thereafter Addendum: 07/06/21 at [address] Amended: Links added.
[2021-07-06] MEDS: K and/or MAG REPLACEMENT MC SCH ×2 (08:00→20:00)
[2021-07-06] MEDS: pantoprazole 40mg Tablet.DR PO SCH (08:04)
[2021-07-06] MEDS: potassium Cl 20 mEq SR tablet PO SCH ×2 (08:04→17:36)
[2021-07-06] MEDS: docusate sod 100mg capsule PO SCH ×2 (08:04→20:18)
[2021-07-06] MEDS: rivaroxaban 15mg tablet PO SCH ×2 (08:04→17:36)
[2021-07-06] MEDS: furosemide 40mg/4ml inj IV SCH ×2 (08:04→20:18)
[2021-07-06] MEDS: nystatin 15 GM powder TP SCH ×3 (08:05→20:38)
[2021-07-06] MEDS: spironolactone 50 MG tablet PO SCH (08:05)
[2021-07-06] MEDS: HYDROcodone/acetaminophen 5mg/325mg tablet PO PRN ×3 (08:07→20:39)
[2021-07-06 12:00] VITALS: BP 105/83
--- NOTE | 2021-07-06 13:26 | NUR ---
promotional table spacer Page Sent PAGER ID: [phone] MESSAGE: [phone] Shaneka Golden, pt had a downward trend in her H/H current as of yesterday is 7.4/21.3. do you want new labs ordered ?
[2021-07-06 13:53] LABS: BASOPHILS % (AUTO) 0.4 % (0-1); EOSINOPHILS # (AUTO) 0.1 X10'3 (0-0.9); EOSINOPHILS % (AUTO) 2.8 % (0-6)
[2021-07-06 14:00] LABS: HEMOGLOBIN 8.3 g/dl (12.0-16.0); LYMPHOCYTES # (AUTO) 0.7 X10'3 (1.1-4.8); LYMPHOCYTES % (AUTO) 12.8 % (21-51); MEAN CORPUSCULAR HEMOGLOBIN 34.7 PG (27.0-31.0); MEAN CORPUSCULAR HGB CONC 34.4 g/dL (33.0-36.5); MEAN CORPUSCULAR VOLUME 100.9 FL (78-98); MEAN PLATELET VOLUME 9.4 FL (7.4-10.4); MONOCYTES # (AUTO) 0.8 X10'3 (0-0.9); NEUTROPHILS # (AUTO) 3.6 X10'3 (1.8-7.7); PLATELET COUNT 140 X10'3 (140-440); RED BLOOD COUNT 2.38 X10'6 (4.20-5.60); RED CELL DISTRIBUTION WIDTH 14.9 % (11.5-14.5); WHITE BLOOD COUNT 5.2 X10'3 (4.5-11.0)
--- NOTE | 2021-07-06 17:50 | NUR ---
PT WOUND DRESSING CHANGED AND TOLERATED WELL.
--- NOTE | 2021-07-06 18:05 | NUR ---
Problems reprioritized. Patient report given, questions answered & plan of care reviewed with ZEYNEP BOSS.
--- NOTE | 2021-07-06 18:43 | NUR ---
Problems reprioritized. Patient report given, questions answered & plan of care reviewed with ZEYNEP BOSS.
[2021-07-06 18:50] VITALS: BP 115/74
[2021-07-06] MEDS: doxepin 25mg capsule PO SCH (20:38)
[2021-07-07] VITALS: BP 101/65
[2021-07-07] MEDS: gabapentin 400mg capsule PO SCH ×4 (00:29→23:43)
--- NOTE | 2021-07-07 06:37 | NUR ---
Problems reprioritized. Patient report given, questions answered & plan of care reviewed with YVONNE. Addendum: 07/07/21 at 0637 by Heriberto Wiseman RN Amended: Links added.
[2021-07-07] MEDS: pantoprazole 40mg Tablet.DR PO SCH (06:59)
[2021-07-07 08:00] VITALS: BP 147/75
[2021-07-07] MEDS: K and/or MAG REPLACEMENT MC SCH ×2 (08:00→20:00)
[2021-07-07] MEDS: docusate sod 100mg capsule PO SCH ×2 (08:00→20:00)
[2021-07-07 08:54] LABS: EOSINOPHILS # (AUTO) 0.1 X10'3 (0-0.9); EOSINOPHILS % (AUTO) 3.8 % (0-6); HEMATOCRIT 22.4 % (35.0-45.0); HEMOGLOBIN 7.6 g/dl (12.0-16.0); LYMPHOCYTES # (AUTO) 0.6 X10'3 (1.1-4.8); LYMPHOCYTES % (AUTO) 16.2 % (21-51); MEAN CORPUSCULAR HEMOGLOBIN 34.3 PG (27.0-31.0); MEAN CORPUSCULAR HGB CONC 34.1 g/dL (33.0-36.5); MEAN CORPUSCULAR VOLUME 100.4 FL (78-98); MEAN PLATELET VOLUME 8.8 FL (7.4-10.4); MONOCYTES # (AUTO) 0.5 X10'3 (0-0.9); MONOCYTES % (AUTO) 14.7 % (2-12); NEUTROPHILS # (AUTO) 2.3 X10'3 (1.8-7.7); NEUTROPHILS % (AUTO) 64.3 % (42-75); PLATELET COUNT 107 X10'3 (140-440); RED BLOOD COUNT 2.23 X10'6 (4.20-5.60); RED CELL DISTRIBUTION WIDTH 14.9 % (11.5-14.5); WHITE BLOOD COUNT 3.7 X10'3 (4.5-11.0)
[2021-07-07 09:09] LABS: ALANINE AMINOTRANSFERASE 58 U/L (12-78); ALBUMIN/GLOBULIN RATIO 0.6 (1.1-1.5); ALKALINE PHOSPHATASE 135 IU/L (46-116); ANION GAP 9 (8-16); ASPARTATE AMINO TRANSFERASE 162 U/L (10-37); BILIRUBIN,TOTAL 5.5 MG/DL (0.1-1.0); BLOOD UREA NITROGEN 16 MG/DL (7-18); BUN/CREATININE RATIO 23.9 (6.6-38.0); CALCIUM 8.1 MG/DL (8.5-10.1); CHLORIDE 101 MMOL/L (99-107); CREATININE 0.67 MG/DL (0.40-0.90); GLUCOSE 129 MG/DL (70-104); PHOSPHORUS 3.1 MG/DL (2.3-4.5); POTASSIUM 3.9 MMOL/L (3.5-5.1); SODIUM 136 MMOL/L (135-145); TOTAL CARBON DIOXIDE 26.2 MMOL/L (24-32); TOTAL PROTEIN 5.4 G/DL (6.4-8.2); eGFR 89 ML/MIN
[2021-07-07] MEDS: furosemide 40mg/4ml inj IV SCH ×2 (09:20→20:02)
[2021-07-07] MEDS: rivaroxaban 15mg tablet PO SCH ×2 (09:20→16:06)
[2021-07-07] MEDS: potassium Cl 20 mEq SR tablet PO SCH ×2 (09:21→17:40)
[2021-07-07] MEDS: spironolactone 50 MG tablet PO SCH (09:21)
[2021-07-07] MEDS: nystatin 15 GM powder TP SCH ×3 (09:22→20:02)
[2021-07-07] MEDS ORDERED: SUMAtriptan 25 MG tablet PO PRN (11:11)
--- NOTE | 2021-07-07 11:12 | NUR ---
PAGER ID: [phone] MESSAGE: Linda Golden 346A Ammonia high 39. Do you want lactulose? Also to wrap legs wound care need vascular studies done. Yu [phone]
[2021-07-07 11:30] VITALS: BP 116/71
[2021-07-07] MEDS: HYDROcodone/acetaminophen 5mg/325mg tablet PO PRN ×2 (12:49→17:41)
[2021-07-07 13:50] LABS: OCCULT BLOOD STOOL POSITIVE (Neg)
--- NOTE | 2021-07-07 15:35 | NUR ---
PAGER ID: [phone] MESSAGE: Linda Golden 346A Pt. with black stool, and low H&H. Q6H&H? Sign blood consent? hold Xarelto? what's the plan? thank you Yu [phone]
--- NOTE | 2021-07-07 15:54 | NUR ---
Hospitalist aware of increased bili levels- no new orders at this time.
--- NOTE | 2021-07-07 16:06 | NUR ---
would like xarelto on hold until she can reassess H&H and pt. Call hospitalist before giving.
[2021-07-07 17:23] LABS: HEMOGLOBIN 7.9 g/dl (12.0-16.0); MEAN CORPUSCULAR HEMOGLOBIN 34.4 PG (27.0-31.0); MEAN CORPUSCULAR HGB CONC 34.4 g/dL (33.0-36.5); MEAN CORPUSCULAR VOLUME 99.9 FL (78-98); MEAN PLATELET VOLUME 9.6 FL (7.4-10.4); PLATELET COUNT 127 X10'3 (140-440); RED CELL DISTRIBUTION WIDTH 14.9 % (11.5-14.5); WHITE BLOOD COUNT 4.5 X10'3 (4.5-11.0)
[2021-07-07 18:00] VITALS: BP 114/60
--- NOTE | 2021-07-07 18:20 | NUR ---
Gave report to Debra BOSS.
[2021-07-07] MEDS: doxepin 25mg capsule PO SCH (20:02)
[2021-07-07 22:41] LABS: HEMATOCRIT 22.1 % (35.0-45.0); HEMOGLOBIN 7.6 g/dl (12.0-16.0); MEAN CORPUSCULAR HEMOGLOBIN 34.2 PG (27.0-31.0); MEAN CORPUSCULAR HGB CONC 34.3 g/dL (33.0-36.5); MEAN PLATELET VOLUME 9.5 FL (7.4-10.4); PLATELET COUNT 119 X10'3 (140-440); RED BLOOD COUNT 2.21 X10'6 (4.20-5.60); RED CELL DISTRIBUTION WIDTH 14.9 % (11.5-14.5); WHITE BLOOD COUNT 4.1 X10'3 (4.5-11.0)
[2021-07-08] VITALS (9 sets, daily range): BP systolic 96–158; BP diastolic 39–92
[2021-07-08 06:16] LABS: HEMOGLOBIN 7.4 g/dl (12.0-16.0); MEAN CORPUSCULAR HEMOGLOBIN 34.7 PG (27.0-31.0); MEAN CORPUSCULAR HGB CONC 34.4 g/dL (33.0-36.5); MEAN CORPUSCULAR VOLUME 100.9 FL (78-98); MEAN PLATELET VOLUME 9.4 FL (7.4-10.4); PLATELET COUNT 98 X10'3 (140-440); RED BLOOD COUNT 2.13 X10'6 (4.20-5.60); RED CELL DISTRIBUTION WIDTH 14.9 % (11.5-14.5); WHITE BLOOD COUNT 3.2 X10'3 (4.5-11.0)
[2021-07-08 06:23] LABS: HEMATOCRIT 21.5 % (35.0-45.0)
--- NOTE | 2021-07-08 06:25 | NUR ---
PAGER ID: [phone] MESSAGE: [phone] Debra BOSS for Linda Golden in 346A. Hematocrit 21.5 low. Any suggestions? Thanks
--- NOTE | 2021-07-08 06:48 | NUR ---
Problems reprioritized. Patient report given, questions answered & plan of care reviewed with KARYN Joseph.
--- NOTE | 2021-07-08 07:31 | NUR ---
PAGER ID: [phone] MESSAGE: [id number] Alicia Golden: H&H 7.4/21.6, plt 98. would you like AM joanne given? thank you, zay [phone]
[2021-07-08] MEDS: K and/or MAG REPLACEMENT MC SCH ×2 (08:00→20:00)
[2021-07-08] MEDS: furosemide 40mg/4ml inj IV SCH ×2 (08:00→20:15)
[2021-07-08] MEDS: docusate sod 100mg capsule PO SCH ×2 (08:42→20:15)
[2021-07-08] MEDS: spironolactone 50 MG tablet PO SCH (08:42)
[2021-07-08] MEDS: gabapentin 400mg capsule PO SCH ×3 (08:42→23:42)
[2021-07-08] MEDS: HYDROcodone/acetaminophen 5mg/325mg tablet PO PRN ×3 (08:42→20:13)
[2021-07-08] MEDS: potassium Cl 20 mEq SR tablet PO SCH ×2 (08:42→16:09)
[2021-07-08] MEDS: pantoprazole 40mg Tablet.DR PO SCH ×2 (08:43→20:13)
[2021-07-08] MEDS: nystatin 15 GM powder TP SCH ×3 (08:43→20:14)
--- NOTE | 2021-07-08 10:14 | NUR ---
Spoke with hospitalists regarding order to page before xeralto doses, he said to give today's doses. Addendum: 07/08/21 at 1018 by Opal Eaton RN Amended: Links added.
[2021-07-08] MEDS: rivaroxaban 15mg tablet PO SCH ×2 (10:39→17:09)
--- NOTE | 2021-07-08 18:22 | NUR ---
Problems reprioritized. Patient report given, questions answered & plan of care reviewed with KARYN Armstrong.
--- NOTE | 2021-07-08 18:27 | NUR ---
Patient in room [facility]. I have received report from WENCESLAO BOSS and had the opportunity to ask questions and assume patient care.
[2021-07-08] MEDS: doxepin 25mg capsule PO SCH (20:13)
[2021-07-09] VITALS: BP 123/53
[2021-07-09 05:03] VITALS: BP 143/74
--- NOTE | 2021-07-09 06:29 | NUR ---
Problems reprioritized. Patient report given, questions answered & plan of care reviewed with WENCESLAO BOSS.
[2021-07-09 07:05] VITALS: BP 96/50
--- NOTE | 2021-07-09 07:10 | NUR ---
PAGER ID: [phone] MESSAGE: [id number] Alicia Golden: order to page hospitalist before giving BID doses of xeralto. no new labs today yesterday H&H 7.4/21.6 and Plts 98. thank you, zay [phone]
[2021-07-09] MEDS: HYDROcodone/acetaminophen 5mg/325mg tablet PO PRN ×3 (07:33→20:37)
[2021-07-09] MEDS: docusate sod 100mg capsule PO SCH ×2 (07:33→20:29)
[2021-07-09] MEDS: gabapentin 400mg capsule PO SCH ×3 (07:33→23:28)
[2021-07-09] MEDS: pantoprazole 40mg Tablet.DR PO SCH ×2 (07:33→20:29)
[2021-07-09] MEDS: nystatin 15 GM powder TP SCH ×3 (07:35→23:29)
[2021-07-09] MEDS: K and/or MAG REPLACEMENT MC SCH ×2 (08:00→20:00)
[2021-07-09 09:17] LABS: BASOPHILS % (AUTO) 0.5 % (0-1); EOSINOPHILS # (AUTO) 0.1 X10'3 (0-0.9); EOSINOPHILS % (AUTO) 3.3 % (0-6); HEMATOCRIT 24.9 % (35.0-45.0); HEMOGLOBIN 8.5 g/dl (12.0-16.0); LYMPHOCYTES # (AUTO) 0.8 X10'3 (1.1-4.8); LYMPHOCYTES % (AUTO) 20.9 % (21-51); MEAN CORPUSCULAR HEMOGLOBIN 33.7 PG (27.0-31.0); MEAN CORPUSCULAR VOLUME 99.1 FL (78-98); MEAN PLATELET VOLUME 9.1 FL (7.4-10.4); MONOCYTES # (AUTO) 0.6 X10'3 (0-0.9); MONOCYTES % (AUTO) 14.5 % (2-12); NEUTROPHILS # (AUTO) 2.5 X10'3 (1.8-7.7); NEUTROPHILS % (AUTO) 60.8 % (42-75); PLATELET COUNT 114 X10'3 (140-440); RED BLOOD COUNT 2.52 X10'6 (4.20-5.60); RED CELL DISTRIBUTION WIDTH 16.8 % (11.5-14.5)
[2021-07-09 09:38] LABS: ALANINE AMINOTRANSFERASE 58 U/L (12-78); ALBUMIN 2.1 G/DL (3.4-5.0); ALKALINE PHOSPHATASE 145 IU/L (46-116); ASPARTATE AMINO TRANSFERASE 154 U/L (10-37); BILIRUBIN,TOTAL 6.1 MG/DL (0.1-1.0); BLOOD UREA NITROGEN 16 MG/DL (7-18); BUN/CREATININE RATIO 23.5 (6.6-38.0); CALCIUM 8.2 MG/DL (8.5-10.1); CHLORIDE 100 MMOL/L (99-107); CREATININE 0.68 MG/DL (0.40-0.90); TOTAL CARBON DIOXIDE 26.7 MMOL/L (24-32); eGFR 88 ML/MIN
[2021-07-09 09:42] LABS: ALBUMIN/GLOBULIN RATIO 0.7 (1.1-1.5); ANION GAP 5 (8-16); GLUCOSE 129 MG/DL (70-104); POTASSIUM 3.8 MMOL/L (3.5-5.1); SODIUM 132 MMOL/L (135-145); TOTAL PROTEIN 5.3 G/DL (6.4-8.2)
--- NOTE | 2021-07-09 10:00 | NUR ---
PAGER ID: [phone] MESSAGE: [id number] Alicia Golden: labs are back. would you like xeralto given? thank you! zay [phone]
[2021-07-09 10:09] VITALS: BP 137/92
[2021-07-09] MEDS: potassium Cl 20 mEq SR tablet PO SCH ×2 (10:10→16:26)
[2021-07-09] MEDS: spironolactone 50 MG tablet PO SCH (10:11)
[2021-07-09] MEDS: rivaroxaban 15mg tablet PO SCH ×2 (10:11→16:26)
[2021-07-09] MEDS: furosemide 40mg/4ml inj IV SCH ×2 (10:13→20:29)
[2021-07-09 12:00] VITALS: BP 97/58
--- NOTE | 2021-07-09 18:26 | NUR ---
Problems reprioritized. Patient report given, questions answered & plan of care reviewed with KARYN Bill.
[2021-07-09 20:00] VITALS: BP 107/66
[2021-07-09] MEDS: doxepin 25mg capsule PO SCH (20:29)
[2021-07-10] VITALS: BP 92/50
--- NOTE | 2021-07-10 06:48 | NUR ---
Problems reprioritized,plan of care reviewed rerport given to Opal BOSS.All questions answered
[2021-07-10 07:00] VITALS: BP 95/54
[2021-07-10 07:54] LABS: BASOPHILS % (AUTO) 0.9 % (0-1); EOSINOPHILS # (AUTO) 0.1 X10'3 (0-0.9); EOSINOPHILS % (AUTO) 3.5 % (0-6); HEMATOCRIT 23.5 % (35.0-45.0); LYMPHOCYTES # (AUTO) 0.7 X10'3 (1.1-4.8); LYMPHOCYTES % (AUTO) 19.5 % (21-51); MEAN CORPUSCULAR HEMOGLOBIN 33.2 PG (27.0-31.0); MEAN CORPUSCULAR HGB CONC 34.2 g/dL (33.0-36.5); MONOCYTES # (AUTO) 0.5 X10'3 (0-0.9); MONOCYTES % (AUTO) 14.4 % (2-12); NEUTROPHILS # (AUTO) 2.3 X10'3 (1.8-7.7); NEUTROPHILS % (AUTO) 61.7 % (42-75); PLATELET COUNT 104 X10'3 (140-440); RED BLOOD COUNT 2.42 X10'6 (4.20-5.60); WHITE BLOOD COUNT 3.7 X10'3 (4.5-11.0)
[2021-07-10] MEDS: K and/or MAG REPLACEMENT MC SCH ×2 (08:00→20:00)
--- NOTE | 2021-07-10 08:06 | NUR ---
PAGER ID: [phone] MESSAGE: [id number] Alicia Golden: would you like xeralto given today? thank you, zay [phone]
[2021-07-10 08:15] LABS: ALANINE AMINOTRANSFERASE 57 U/L (12-78); ALKALINE PHOSPHATASE 138 IU/L (46-116); ANION GAP 4 (8-16); ASPARTATE AMINO TRANSFERASE 146 U/L (10-37); BILIRUBIN,TOTAL 5.4 MG/DL (0.1-1.0); BLOOD UREA NITROGEN 17 MG/DL (7-18); BUN/CREATININE RATIO 20.2 (6.6-38.0); CALCIUM 8.3 MG/DL (8.5-10.1); CHLORIDE 102 MMOL/L (99-107); CREATININE 0.84 MG/DL (0.40-0.90); POTASSIUM 3.9 MMOL/L (3.5-5.1); SODIUM 134 MMOL/L (135-145); TOTAL CARBON DIOXIDE 27.7 MMOL/L (24-32); eGFR 69 ML/MIN
[2021-07-10 08:17] LABS: ALBUMIN/GLOBULIN RATIO 0.6 (1.1-1.5); GLUCOSE 112 MG/DL (70-104); TOTAL PROTEIN 5.3 G/DL (6.4-8.2)
[2021-07-10] MEDS: HYDROcodone/acetaminophen 5mg/325mg tablet PO PRN ×3 (08:46→19:54)
[2021-07-10] MEDS: rivaroxaban 15mg tablet PO SCH ×2 (08:46→16:55)
[2021-07-10] MEDS: docusate sod 100mg capsule PO SCH ×2 (08:47→19:54)
[2021-07-10] MEDS: pantoprazole 40mg Tablet.DR PO SCH ×2 (08:47→19:54)
[2021-07-10] MEDS: nystatin 15 GM powder TP SCH ×3 (08:47→20:14)
[2021-07-10] MEDS: gabapentin 400mg capsule PO SCH ×3 (08:47→23:24)
[2021-07-10] MEDS: spironolactone 50 MG tablet PO SCH (08:49)
[2021-07-10] MEDS: potassium Cl 20 mEq SR tablet PO SCH ×2 (08:49→16:55)
[2021-07-10 08:50] VITALS: BP 124/64
[2021-07-10] MEDS: furosemide 40mg/4ml inj IV SCH ×2 (08:50→19:54)
[2021-07-10 11:56] VITALS: BP 120/60
--- NOTE | 2021-07-10 14:49 | NUR ---
WOUND INFECTION EDUCATION PROVIDED BY WOUND CARE 1. Patient instructed to call their primary doctor, or go the ED immediately if any of the following symptoms occur: * Increased pain in wound * Increase in drainage from the wound * Redness in the skin surrounding the wound * Warmth in the skin surrounding the wound * Bleeding from the wound * Temperature of 101 or greater 2. If any of these occur while in the hospital tell a nurse immediately. PRESSURE ULCER EDUCATION: DEFINITION: A pressure ulcer is an area of skin that breaks down when you stay in one position too long. The constant pressure against the skin reduces the blood flow to that area and the affected tissue dies. CAUSES: "Being bedridden or in a wheelchair "Fragile skin "Having a chronic condition, such as diabetes or vascular disease "Inability to move certain parts of your body without assistance "Older age "Incontinence of urine or stool SYMPTOMS: "A reddened area that DOES NOT turn white when pressed on - this can be the beginning of a pressure ulcer "A blister, deep sore or a crater - these can be advanced pressure ulcers FIRST AID: "Relieve the pressure on this area "Keep the area clean and dry "Call your primary doctor if you see any of the above symptoms "DO NOT massage the area "DO NOT use a donut shaped or ring shaped pillow- these actually interfere with the blood flow and cause complications PREVENTION: "Check for pressure ulcers everyday "Change position at least every two hours to relieve pressure "Use items that help relieve pressure- pillows, sheepskin, foam padding, and powders. "Keep skin clean and dry "Eat healthy well balanced meals "Exercise daily IF YOU SEE ANY OF THESE SYMPTOMS WHILE IN THE HOSPITAL - TELL YOUR NURSE IMMEDIATELY. IF YOU SEE ANY OF THESE SYMPTOMS WHILE AT HOME OR HAVE ANY QUESTIONS OR CONCERNS ABOUT PRESSURE ULCERS - CALL YOUR PRIMARY DOCTOR IMMEDIATELY. Addendum: 07/10/21 at 1450 by Cori Zhong RN Amended: Links added.
--- NOTE | 2021-07-10 17:03 | NUR ---
Reassessment: Slight fluctuations in PO intake however pt eating well overall with mostly 75-100% PO intake. LBM 07/07, receiving routine bowel care with PRN bowel care available. No nutrition intervention implemented at this time. Will continue to follow and monitor need for nutrition intervention. Recommendations: 1) Continue 2 g Na restricted diet 2) Monitor need for additional protein 3) Routine Thiamine, Folic acid, and MVI with MD approval in view of EtOH hx with elevated MCV 4) Routine bowel care 5) Scaled weight this admit; weekly scaled weights thereafter Addendum: 07/10/21 at [address]án[address] Amended: Links added.
[2021-07-10 18:00] VITALS: BP 115/88
--- NOTE | 2021-07-10 18:13 | NUR ---
Problems reprioritized. Patient report given, questions answered & plan of care reviewed with KARYN John.
--- NOTE | 2021-07-10 18:20 | NUR ---
Patient in room [facility]. I have received report from Opal BOSS and had the opportunity to ask questions and assume patient care.
[2021-07-10] MEDS: doxepin 25mg capsule PO SCH (20:01)
[2021-07-11] VITALS: BP 144/63
--- NOTE | 2021-07-11 07:01 | NUR ---
Talked with Arlet BOSS (Charge Nurse) to give report. Arlet got report from Whitney BOSS. Was available for the opportunity to ask questions and for the charge nurse to assume patient care.
[2021-07-11] MEDS: K and/or MAG REPLACEMENT MC SCH ×2 (08:00→20:00)
[2021-07-11 08:02] VITALS: BP 102/62
[2021-07-11 08:41] LABS: BASOPHILS % (AUTO) 0.4 % (0-1); EOSINOPHILS # (AUTO) 0.1 X10'3 (0-0.9); EOSINOPHILS % (AUTO) 2.9 % (0-6); HEMATOCRIT 23.1 % (35.0-45.0); HEMOGLOBIN 7.7 g/dl (12.0-16.0); LYMPHOCYTES # (AUTO) 0.6 X10'3 (1.1-4.8); MEAN CORPUSCULAR HEMOGLOBIN 33.1 PG (27.0-31.0); MEAN CORPUSCULAR HGB CONC 33.2 g/dL (33.0-36.5); MEAN CORPUSCULAR VOLUME 99.7 FL (78-98); MEAN PLATELET VOLUME 9.4 FL (7.4-10.4); MONOCYTES # (AUTO) 0.5 X10'3 (0-0.9); MONOCYTES % (AUTO) 13.3 % (2-12); NEUTROPHILS # (AUTO) 2.6 X10'3 (1.8-7.7); NEUTROPHILS % (AUTO) 67.4 % (42-75); PLATELET COUNT 95 X10'3 (140-440); RED BLOOD COUNT 2.31 X10'6 (4.20-5.60); RED CELL DISTRIBUTION WIDTH 16.5 % (11.5-14.5); WHITE BLOOD COUNT 3.9 X10'3 (4.5-11.0)
[2021-07-11] MEDS: nystatin 15 GM powder TP SCH ×3 (08:56→21:29)
[2021-07-11] MEDS: gabapentin 400mg capsule PO SCH ×2 (08:56→16:23)
[2021-07-11] MEDS: pantoprazole 40mg Tablet.DR PO SCH ×2 (08:56→19:14)
[2021-07-11] MEDS: potassium Cl 20 mEq SR tablet PO SCH ×2 (08:56→16:23)
[2021-07-11] MEDS: docusate sod 100mg capsule PO SCH ×2 (08:56→19:15)
[2021-07-11] MEDS: rivaroxaban 15mg tablet PO SCH ×2 (08:56→16:23)
[2021-07-11] MEDS: spironolactone 50 MG tablet PO SCH (08:56)
[2021-07-11 09:01] LABS: ALANINE AMINOTRANSFERASE 55 U/L (12-78); ALBUMIN 1.9 G/DL (3.4-5.0); ALKALINE PHOSPHATASE 147 IU/L (46-116); ANION GAP 7 (8-16); ASPARTATE AMINO TRANSFERASE 130 U/L (10-37); BILIRUBIN,TOTAL 4.7 MG/DL (0.1-1.0); BLOOD UREA NITROGEN 17 MG/DL (7-18); BUN/CREATININE RATIO 20.2 (6.6-38.0); CALCIUM 8.2 MG/DL (8.5-10.1); CHLORIDE 102 MMOL/L (99-107); CREATININE 0.84 MG/DL (0.40-0.90); POTASSIUM 3.8 MMOL/L (3.5-5.1); SODIUM 136 MMOL/L (135-145); TOTAL CARBON DIOXIDE 27.3 MMOL/L (24-32); eGFR 69 ML/MIN
[2021-07-11] MEDS: HYDROcodone/acetaminophen 5mg/325mg tablet PO PRN ×3 (09:02→19:14)
[2021-07-11] MEDS: furosemide 40mg/4ml inj IV SCH ×2 (09:02→19:14)
[2021-07-11 09:04] LABS: ALBUMIN/GLOBULIN RATIO 0.6 (1.1-1.5); GLUCOSE 121 MG/DL (70-104); TOTAL PROTEIN 5.2 G/DL (6.4-8.2)
[2021-07-11 11:37] VITALS: BP 98/70
--- NOTE | 2021-07-11 16:01 | NUR ---
PAGER ID: [phone] MESSAGE: [id number] rGegoria Golden/Lisa .1 do you want her to have her Xarelto at 1730 or hold it? Arlet [phone]
--- NOTE | 2021-07-11 18:07 | NUR ---
Problems reprioritized. Patient report given, questions answered & plan of care reviewed with Chantell BOSS
--- NOTE | 2021-07-11 18:36 | NUR ---
Patient in room [facility]. I have received report from Arlet BOSS and had the opportunity to ask questions and assume patient care.
[2021-07-11 18:45] VITALS: BP 126/78
[2021-07-11] MEDS: doxepin 25mg capsule PO SCH (21:29)
[2021-07-12 00:08] VITALS: BP 104/68
[2021-07-12] MEDS: gabapentin 400mg capsule PO SCH ×3 (00:40→16:03)
[2021-07-12] MEDS: rivaroxaban 15mg tablet PO SCH ×3 (06:44→18:00)
--- NOTE | 2021-07-12 06:49 | NUR ---
Problems reprioritized. Patient report given, questions answered & plan of care reviewed with Altagracia BOSS.
[2021-07-12 07:00] VITALS: BP 106/57
[2021-07-12 07:03] LABS: BASOPHILS % (AUTO) 1.1 % (0-1); EOSINOPHILS # (AUTO) 0.1 X10'3 (0-0.9); EOSINOPHILS % (AUTO) 3.7 % (0-6); HEMATOCRIT 22.4 % (35.0-45.0); HEMOGLOBIN 7.6 g/dl (12.0-16.0); LYMPHOCYTES # (AUTO) 0.6 X10'3 (1.1-4.8); LYMPHOCYTES % (AUTO) 18.7 % (21-51); MEAN CORPUSCULAR HEMOGLOBIN 33.3 PG (27.0-31.0); MEAN CORPUSCULAR VOLUME 97.8 FL (78-98); MEAN PLATELET VOLUME 9.2 FL (7.4-10.4); MONOCYTES # (AUTO) 0.4 X10'3 (0-0.9); MONOCYTES % (AUTO) 12.6 % (2-12); NEUTROPHILS # (AUTO) 2.1 X10'3 (1.8-7.7); NEUTROPHILS % (AUTO) 63.9 % (42-75); PLATELET COUNT 88 X10'3 (140-440); RED BLOOD COUNT 2.29 X10'6 (4.20-5.60); WHITE BLOOD COUNT 3.4 X10'3 (4.5-11.0)
[2021-07-12 07:16] LABS: ALANINE AMINOTRANSFERASE 47 U/L (12-78); ALBUMIN 1.9 G/DL (3.4-5.0); ALKALINE PHOSPHATASE 145 IU/L (46-116); ANION GAP 5 (8-16); ASPARTATE AMINO TRANSFERASE 120 U/L (10-37); BILIRUBIN,TOTAL 4.9 MG/DL (0.1-1.0); BLOOD UREA NITROGEN 19 MG/DL (7-18); BUN/CREATININE RATIO 23.2 (6.6-38.0); CHLORIDE 102 MMOL/L (99-107); CREATININE 0.82 MG/DL (0.40-0.90); POTASSIUM 3.7 MMOL/L (3.5-5.1); SODIUM 136 MMOL/L (135-145); TOTAL CARBON DIOXIDE 29.3 MMOL/L (24-32); eGFR 71 ML/MIN
[2021-07-12 07:19] LABS: APTT 53 SECONDS (22-32)
[2021-07-12 07:21] LABS: ALBUMIN/GLOBULIN RATIO 0.6 (1.1-1.5); GLUCOSE 119 MG/DL (70-104); TOTAL PROTEIN 5.2 G/DL (6.4-8.2)
--- NOTE | 2021-07-12 07:50 | NUR ---
Paged Dr. López PAGER ID: [phone] MESSAGE: Surgical Keily RN ext [phone]. RE: Luzma Golden. Reporting critical lab today PT 38.8 INR 4.1
[2021-07-12] MEDS: K and/or MAG REPLACEMENT MC SCH ×2 (08:00→20:00)
[2021-07-12 08:03] LABS: PLATELET ESTIMATE DECREASED
[2021-07-12] MEDS ORDERED: lactulose 20gm/30ml cup PO PRN (08:10)
--- NOTE | 2021-07-12 08:11 | NUR ---
Dr. López called back he said we can still give the Eliquis as eliquis does not affect the INR.
[2021-07-12] MEDS: HYDROcodone/acetaminophen 5mg/325mg tablet PO PRN ×3 (08:32→20:32)
[2021-07-12] MEDS: docusate sod 100mg capsule PO SCH ×2 (08:32→20:30)
[2021-07-12] MEDS: potassium Cl 20 mEq SR tablet PO SCH ×2 (08:32→18:00)
[2021-07-12] MEDS: pantoprazole 40mg Tablet.DR PO SCH ×2 (08:32→20:30)
[2021-07-12] MEDS: nystatin 15 GM powder TP SCH ×3 (08:34→20:49)
[2021-07-12] MEDS: furosemide 40mg/4ml inj IV SCH ×2 (08:34→20:47)
[2021-07-12 11:00] VITALS: BP 112/55
[2021-07-12] MEDS: spironolactone 50 MG tablet PO SCH (11:00)
[2021-07-12 18:00] VITALS: BP 109/66
--- NOTE | 2021-07-12 18:30 | NUR ---
Patient in room [facility]A. I have received report from KARYN Michaud and had the opportunity to ask questions and assume patient care.
--- NOTE | 2021-07-12 18:39 | NUR ---
Problems reprioritized. Patient report given, questions answered & plan of care reviewed with Debra BOSS.
[2021-07-12] MEDS: doxepin 25mg capsule PO SCH (20:32)
[2021-07-13] VITALS (10 sets, daily range): BP systolic 94–132; BP diastolic 61–72
[2021-07-13] MEDS: gabapentin 400mg capsule PO SCH ×3 (01:18→15:28)
[2021-07-13 05:50] LABS: BASOPHILS % (AUTO) 1.2 % (0-1); EOSINOPHILS # (AUTO) 0.1 X10'3 (0-0.9); EOSINOPHILS % (AUTO) 3.7 % (0-6); HEMOGLOBIN 7.3 g/dl (12.0-16.0); LYMPHOCYTES # (AUTO) 0.8 X10'3 (1.1-4.8); LYMPHOCYTES % (AUTO) 19.2 % (21-51); MEAN CORPUSCULAR HEMOGLOBIN 32.3 PG (27.0-31.0); MEAN CORPUSCULAR HGB CONC 33.2 g/dL (33.0-36.5); MEAN CORPUSCULAR VOLUME 97.3 FL (78-98); MEAN PLATELET VOLUME 9.3 FL (7.4-10.4); MONOCYTES # (AUTO) 0.5 X10'3 (0-0.9); MONOCYTES % (AUTO) 13.3 % (2-12); NEUTROPHILS # (AUTO) 2.5 X10'3 (1.8-7.7); NEUTROPHILS % (AUTO) 62.6 % (42-75); PLATELET COUNT 99 X10'3 (140-440); RED BLOOD COUNT 2.25 X10'6 (4.20-5.60); RED CELL DISTRIBUTION WIDTH 15.7 % (11.5-14.5)
[2021-07-13 06:00] LABS: HEMATOCRIT 21.9 % (35.0-45.0)
--- NOTE | 2021-07-13 06:18 | NUR ---
Problems reprioritized. Patient report given, questions answered & plan of care reviewed with KARYN Joseph.
[2021-07-13 06:31] LABS: ALANINE AMINOTRANSFERASE 50 U/L (12-78); ALBUMIN 1.9 G/DL (3.4-5.0); ALKALINE PHOSPHATASE 137 IU/L (46-116); ANION GAP 8 (8-16); ASPARTATE AMINO TRANSFERASE 116 U/L (10-37); BLOOD UREA NITROGEN 20 MG/DL (7-18); BUN/CREATININE RATIO 25.3 (6.6-38.0); CALCIUM 8.2 MG/DL (8.5-10.1); CHLORIDE 102 MMOL/L (99-107); CREATININE 0.79 MG/DL (0.40-0.90); POTASSIUM 3.8 MMOL/L (3.5-5.1); SODIUM 137 MMOL/L (135-145); TOTAL CARBON DIOXIDE 26.9 MMOL/L (24-32); eGFR 74 ML/MIN
[2021-07-13 06:34] LABS: ALBUMIN/GLOBULIN RATIO 0.6 (1.1-1.5); GLUCOSE 114 MG/DL (70-104); TOTAL PROTEIN 5.3 G/DL (6.4-8.2)
--- NOTE | 2021-07-13 07:17 | NUR ---
PAGER ID: [phone] MESSAGE: 346A Alicia Golden: critical hct 21.9. hgb 7.3. thanks! zay [phone]
[2021-07-13] MEDS: K and/or MAG REPLACEMENT MC SCH ×2 (08:00→19:49)
[2021-07-13] MEDS: potassium Cl 20 mEq SR tablet PO SCH ×2 (08:44→16:32)
[2021-07-13] MEDS: docusate sod 100mg capsule PO SCH ×2 (08:44→19:37)
[2021-07-13] MEDS: spironolactone 50 MG tablet PO SCH (08:44)
[2021-07-13] MEDS: nystatin 15 GM powder TP SCH ×3 (08:44→22:01)
[2021-07-13] MEDS: pantoprazole 40mg Tablet.DR PO SCH ×2 (08:44→19:38)
[2021-07-13] MEDS: furosemide 40mg/4ml inj IV SCH ×2 (08:48→19:46)
[2021-07-13] MEDS: HYDROcodone/acetaminophen 5mg/325mg tablet PO PRN ×3 (08:48→19:38)
[2021-07-13] MEDS: rivaroxaban 15mg tablet PO SCH ×2 (10:36→16:32)
--- NOTE | 2021-07-13 13:35 | NUR ---
PAGER ID: [phone] MESSAGE: [id number] Alicia Golden: were you still wanting the PRBC? thank you, zay [phone]
--- NOTE | 2021-07-13 13:40 | NUR ---
Page sent to .... [facility] Alicia Golden: Attn: WAQAS Willard from [facility] is trying to reach you regarding discharge transportation. [phone].
--- NOTE | 2021-07-13 15:16 | NUR ---
PAGER ID: [phone] MESSAGE: 346A Alicia Golden: blood bank is questioning whether or not the blood needs to be irradiated and cmv safe or not. it wasn't like time.
--- NOTE | 2021-07-13 15:31 | NUR ---
Page sent to .... [address] Alicia Golden: patient is requesting to speak with clinical case manager regarding questions about the facility. thank you.
--- NOTE | 2021-07-13 16:17 | NUR ---
PAGER ID: [phone] MESSAGE: [id number] Alicia Golden: would you like 1730 dose of xeralto given? opal lagunas [id number] Addendum: 07/13/21 at 1619 by Opal Eaton RN phone call back. advised to continue xeralto
--- NOTE | 2021-07-13 18:15 | NUR ---
Patient in room [facility]. I have received report from Claudia BOSS and had the opportunity to ask questions and assume patient care.
--- NOTE | 2021-07-13 18:20 | NUR ---
Problems reprioritized. Patient report given, questions answered & plan of care reviewed with KARYN Crisostomo.
[2021-07-13] MEDS: doxepin 25mg capsule PO SCH (19:38)
--- NOTE | 2021-07-13 19:56 | NUR ---
Doxepin given early per pt. request.
[2021-07-13 22:19] LABS: EOSINOPHILS # (AUTO) 0.2 X10'3 (0-0.9); HEMOGLOBIN 8.4 g/dl (12.0-16.0)
[2021-07-13 22:21] LABS: BASOPHILS % (AUTO) 0.1 % (0-1); EOSINOPHILS % (AUTO) 3.7 % (0-6); HEMATOCRIT 24.7 % (35.0-45.0); LYMPHOCYTES # (AUTO) 0.8 X10'3 (1.1-4.8); LYMPHOCYTES % (AUTO) 15.5 % (21-51); MEAN CORPUSCULAR HEMOGLOBIN 32.5 PG (27.0-31.0); MEAN CORPUSCULAR HGB CONC 34.1 g/dL (33.0-36.5); MEAN CORPUSCULAR VOLUME 95.2 FL (78-98); MEAN PLATELET VOLUME 9.1 FL (7.4-10.4); MONOCYTES # (AUTO) 0.8 X10'3 (0-0.9); MONOCYTES % (AUTO) 16.1 % (2-12); NEUTROPHILS # (AUTO) 3.2 X10'3 (1.8-7.7); NEUTROPHILS % (AUTO) 64.6 % (42-75); PLATELET COUNT 108 X10'3 (140-440); RED BLOOD COUNT 2.59 X10'6 (4.20-5.60); RED CELL DISTRIBUTION WIDTH 16.4 % (11.5-14.5); WHITE BLOOD COUNT 4.9 X10'3 (4.5-11.0)
[2021-07-13 22:49] LABS: APTT 52 SECONDS (22-32)
[2021-07-14] VITALS: BP 112/64
[2021-07-14] MEDS: gabapentin 400mg capsule PO SCH ×2 (00:16→08:46)
[2021-07-14 00:52] LABS: ANISOCYTOSIS 1+; PLATELET ESTIMATE DECREASED; TOTAL CELLS COUNTED 100
[2021-07-14 00:54] LABS: POLYCHROMASIA 1+
--- NOTE | 2021-07-14 06:30 | NUR ---
Problems reprioritized. Patient report given, questions answered & plan of care reviewed with Rosa BOSS.
[2021-07-14 07:00] VITALS: BP 98/55
--- NOTE | 2021-07-14 07:00 | NUR ---
Patient in room [facility]. I have received report from KARYN Crisostomo and had the opportunity to ask questions and assume patient care.
[2021-07-14 07:53] LABS: BASOPHILS % (AUTO) 0.7 % (0-1); EOSINOPHILS # (AUTO) 0.1 X10'3 (0-0.9); EOSINOPHILS % (AUTO) 4.2 % (0-6); HEMATOCRIT 22.3 % (35.0-45.0); HEMOGLOBIN 7.6 g/dl (12.0-16.0); LYMPHOCYTES # (AUTO) 0.7 X10'3 (1.1-4.8); LYMPHOCYTES % (AUTO) 18.6 % (21-51); MEAN CORPUSCULAR HEMOGLOBIN 32.8 PG (27.0-31.0); MEAN CORPUSCULAR VOLUME 96.6 FL (78-98); MEAN PLATELET VOLUME 9.6 FL (7.4-10.4); MONOCYTES # (AUTO) 0.5 X10'3 (0-0.9); MONOCYTES % (AUTO) 14.4 % (2-12); NEUTROPHILS # (AUTO) 2.2 X10'3 (1.8-7.7); NEUTROPHILS % (AUTO) 62.1 % (42-75); PLATELET COUNT 93 X10'3 (140-440); RED CELL DISTRIBUTION WIDTH 16.5 % (11.5-14.5); WHITE BLOOD COUNT 3.5 X10'3 (4.5-11.0)
[2021-07-14 08:09] LABS: ALANINE AMINOTRANSFERASE 52 U/L (12-78); ALBUMIN 1.8 G/DL (3.4-5.0); ALKALINE PHOSPHATASE 134 IU/L (46-116); ANION GAP 8 (8-16); ASPARTATE AMINO TRANSFERASE 113 U/L (10-37); BLOOD UREA NITROGEN 19 MG/DL (7-18); BUN/CREATININE RATIO 21.8 (6.6-38.0); CALCIUM 7.9 MG/DL (8.5-10.1); CHLORIDE 101 MMOL/L (99-107); CREATININE 0.87 MG/DL (0.40-0.90); POTASSIUM 3.7 MMOL/L (3.5-5.1); SODIUM 136 MMOL/L (135-145); TOTAL CARBON DIOXIDE 26.6 MMOL/L (24-32); eGFR 66 ML/MIN
[2021-07-14 08:12] LABS: ALBUMIN/GLOBULIN RATIO 0.6 (1.1-1.5); GLUCOSE 123 MG/DL (70-104)
[2021-07-14] MEDS: spironolactone 50 MG tablet PO SCH (08:45)
[2021-07-14] MEDS: furosemide 40mg/4ml inj IV SCH (08:45)
[2021-07-14] MEDS: potassium Cl 20 mEq SR tablet PO SCH (08:46)
[2021-07-14] MEDS: pantoprazole 40mg Tablet.DR PO SCH (08:46)
[2021-07-14] MEDS: nystatin 15 GM powder TP SCH (08:46)
[2021-07-14] MEDS: docusate sod 100mg capsule PO SCH (08:46)
[2021-07-14] MEDS: HYDROcodone/acetaminophen 5mg/325mg tablet PO PRN (08:48)
--- NOTE | 2021-07-14 09:01 | NUR ---
PAGER ID: [phone] MESSAGE: Rosa Surg [phone] Re: [place] Cruz would like to get a one time dose of Ativan or Xanax for patients Transport to facility today. Please call. Addendum: 07/14/21 at 0902 by Poonam Carvalho RN Received order for one time dose Ativan 1mg PO
[2021-07-14] MEDS ORDERED: LORazepam 1 MG tablet PO ONE (09:05)
--- NOTE | 2021-07-14 13:01 | NUR ---
Cm provided incorrect report number [facility] number obtained [facility]
== END 2021-07-14 10:37 | disposition short-term general hospital (02) | DRG 279 ==
LOC: ER 14:48 → ED HOLD 21:25 → SUR 3N 22:32
PROVIDERS: ADMIT Family Medicine; ATTEND Family Medicine
PROC: 3E0234Z Introduction of Serum, Toxoid and Vaccine into Muscle, Percutaneous Approach (ICD-10-PCS; 2021-06-16)
PROC: 3E02340 Introduction of Influenza Vaccine into Muscle, Percutaneous Approach (ICD-10-PCS; 2021-06-16)
PROC: B32T1ZZ Computerized Tomography (CT Scan) of Left Pulmonary Artery using Low Osmolar Contrast (ICD-10-PCS; 2021-06-16)
PROC: B3201ZZ Computerized Tomography (CT Scan) of Thoracic Aorta using Low Osmolar Contrast (ICD-10-PCS; 2021-06-16)
PROC: B32S1ZZ Computerized Tomography (CT Scan) of Right Pulmonary Artery using Low Osmolar Contrast (ICD-10-PCS; 2021-06-16)
PROC: 0W9C3ZZ Drainage of Mediastinum, Percutaneous Approach (ICD-10-PCS; principal; 2021-06-30)
PROC: 30233N1 Transfusion of Nonautologous Red Blood Cells into Peripheral Vein, Percutaneous Approach (ICD-10-PCS; 2021-07-08)
DX: K72.00 Acute and subacute hepatic failure without coma (principal); I81 Portal vein thrombosis; E43 Unspecified severe protein-calorie malnutrition; D61.818 Other pancytopenia; D68.9 Coagulation defect, unspecified; C22.0 Liver cell carcinoma; R18.8 Other ascites; E87.1 Hypo-osmolality and hyponatremia; I69.351 Hemiplegia and hemiparesis following cerebral infarction affecting right dominant side; Z20.822 Contact with and (suspected) exposure to COVID-19; L03.115 Cellulitis of right lower limb; K74.60 Unspecified cirrhosis of liver; Z66 Do not resuscitate; L03.116 Cellulitis of left lower limb; E87.6 Hypokalemia; G47.33 Obstructive sleep apnea (adult) (pediatric); I10 Essential (primary) hypertension; I87.003 Postthrombotic syndrome without complications of bilateral lower extremity; Z60.2 Problems related to living alone; E66.01 Morbid (severe) obesity due to excess calories; R25.1 Tremor, unspecified; B18.2 Chronic viral hepatitis C; F10.20 Alcohol dependence, uncomplicated; I87.2 Venous insufficiency (chronic) (peripheral); G62.9 Polyneuropathy, unspecified; Z72.0 Tobacco use; Z79.01 Long term (current) use of anticoagulants; Z79.899 Other long term (current) drug therapy; Z23 Encounter for immunization; Z88.2 Allergy status to sulfonamides; Z88.5 Allergy status to narcotic agent; Z88.1 Allergy status to other antibiotic agents; Z71.6 Tobacco abuse counseling; Z68.41 Body mass index [BMI] 40.0-44.9, adult; Z71.41 Alcohol abuse counseling and surveillance of alcoholic; I69.322 Dysarthria following cerebral infarction; R31.9 Hematuria, unspecified; L72.3 Sebaceous cyst
CPT/HCPCS: 36410; 36415; 36430; 36569; 71045; 71275; 76700; 76937; 80053; 81003; 82103; 82140; 82272; 82550; 83036; 83605; 83690; 83735; 83880; 84100; 84132; 84443; 84484; 85007; 85008; 85025; 85027; 85379; 85384; 85610; 85730; 86885; 86900; 86901; 86920; 87040; 87070; 87075; 87077; 87081; 87186; 87635; 90732; 93005; 93308; 93922; 93925; 93970; 93975; 96374; 97110; 97116; 97161; 97530; 99285; C1751; G0378; J0696; J1644; J1652; J1940; J3480; J3490; J7030; P9016; P9047; Q0163; Q9967